=== PATIENT | male | born 1960 | race Caucasian/White ===

== ENCOUNTER 2016-08-19 11:02 | Observation (INO) | payer BC ==
--- NOTE | 2016-08-19 12:00 | RAD ---
Indication: Arrhythmia. Single frontal view of the chest performed at 1125 hours was reviewed. No prior study is available for comparison. No mediastinal shift is noted. Heart is of normal size and configuration. Lung tinoco appear clear. IMPRESSION: NO ACTIVE CARDIOPULMONARY DISEASE IS NOTED.
[2016-08-19 12:01] LABS: Hematocrit 50 % (42-52); Hemoglobin 16.7 g/dl (14.0-18.0); Mean Corpuscular HGB Conc 33 g/dl (31-36); Mean Corpuscular Hemoglobin 29 pg (27-31); Mean Corpuscular Volume 89 fL (80-94); Mean Platelet Volume 9 um3 (7.4-10.4); Red Blood Count 5.66 10^6/ul (4.0-5.4); Red Cell Distribution Width 14 % (10.5-15); White Blood Count 5.3 10^3/ul (3.5-10.8)
[2016-08-19 12:12] LABS: Albumin 3.7 g/dL (3.2-5.2); BUN/Creatinine Ratio 14.9 (8-20); EGFR African American 107.2 (>60); EGFR Non-African American 83.3 (>60); Globulin 2.6 g/dL (2-4); Magnesium 2.1 mg/dL (1.9-2.7); Potassium 4.4 mmol/L (3.5-5.0); Total Bilirubin 1.1 mg/dL (0.2-1.0); Total Protein 6.3 g/dL (6.4-8.9)
[2016-08-19 12:14] LABS: Troponin I 0.01 ng/mL (<0.04)
[2016-08-19 12:44] LABS: TSH (Thyroid Stimulating Horm) 4.22 mcIU/mL (0.34-5.60)
[2016-08-19] MEDS ORDERED: Diltiazem IV* 5 MG/ML 5 ML VIAL (for loading dose/IV Push) (25 MG) IV PUSH ONE (13:06)
[2016-08-19] MEDS ORDERED: Diltiazem DRIP* 100 MG/100 ML ADDV.BAG IVPB ONE (13:06)
[2016-08-19] MEDS ORDERED: NS 0.9% 1000 ML* 1,000 ML IV ONE (13:06)
[2016-08-19] MEDS ORDERED: Diltiazem TAB* 30 MG PO SCH (14:00)
[2016-08-19] MEDS: Enoxaparin(*) 100 MG/ML SYR SUBCUT SCH (15:26)
[2016-08-19] MEDS ORDERED: Diltiazem IV* 5 MG/ML 5 ML VIAL (for loading dose/IV Push) (25 MG) IV SLOW PU ONE (16:17)
--- NOTE | 2016-08-19 16:29 | HP ---
CC: Dr. Phong Milton HISTORY AND PHYSICAL: DATE OF ADMISSION: 08/19/16 PRIMARY CARE PHYSICIAN: Dr. Phong Milton. CHIEF COMPLAINT: Fatigue, AFib. HISTORY OF PRESENT ILLNESS: Mr. Chino is a 56-year-old male with past medical history of AFib, status post ablation in 2004 with recurrence, currently on flecainide; Hale's esophagus; and untreated BRETT who presents to the hospital after waking up this morning and subsequently feeling a sense of fatigue and "feeling funny." He denies any chest pain or palpitations. He felt well when he woke up in the morning, but about an hour or 2 later, he had this sensation which he states he usually gets when he notes he has atrial fibrillation. No shortness of breath, fever, chills, nausea, vomiting, or diarrhea. He denies any alcohol or coffee drinking. He did have some caffeinated sodas yesterday and last night; however, no more than usual. He came to the emergency room and was found to be in AFib with rapid ventricular rate with heart rates into the 130s and 140s. The patient states he did notice some back pain at the end of last week as well as some urinary frequency on Saturday, 2 days ago. The patient was taking Protonix for his Hale's esophagus ; however, he felt that this was maybe causing his symptoms, so he stopped this and since then they have resolved. He has no dysuria. PAST MEDICAL HISTORY: 1. AFib. 2. Hale's esophagus. 3. BRETT, untreated. PAST SURGICAL HISTORY: 1. Left ИВАН and revision. 2. Shoulder surgery. 3. Hernia repair. 4. Cardiac ablation, 2004. HOME MEDICATIONS: Flecainide 150 mg by mouth 2 times daily. ALLERGIES: The patient has no known drug allergies. FAMILY HISTORY: Significant for mother with CAD, valve replacement, and tobacco abuse. Father with CVA. SOCIAL HISTORY: Denies tobacco or illicit drug use. Has not had any alcohol for a few months. PHYSICAL EXAMINATION GENERAL: The patient is a middle-aged man lying in bed in no apparent distress. VITAL SIGNS: On admission, temperature 98.3, heart rate of 170, respiratory rate of 18, O2 saturation 96% on room air. Initial blood pressure 155/120, subsequently 123/66. HEENT: Moist mucous membranes. Anicteric sclerae. NECK: No cervical adenopathy. LUNGS: Clear to auscultation bilaterally. No wheezes, rales, or rhonchi. CARDIOVASCULAR: Irregularly irregular. Normal rate. No murmurs, gallops, or rubs. ABDOMEN: Soft, nontender, nondistended. Bowel sounds positive. EXTREMITIES: Some trace edema, bilateral lower extremities. SKIN: Warm, dry, and well perfused. NEUROLOGIC: The patient is alert and oriented x3. No focal neurological deficits. LABS AND DIAGNOSTICS: White blood cell count of 5.3, hematocrit of 50, platelets of 169. INR of 0.94. Sodium of 137, potassium 4.4, chloride of 108, carbon dioxide 23, BUN of 14, creatinine 0.94, glucose of 106, lactic acid of 1.0. Total bilirubin of 1.1. Remainder of LFTs within normal limits. Troponin of 0.01. TSH of 4.22. EKG personally reviewed shows atrial fibrillation, some Q waves in the inferior leads. Chest x-ray personally reviewed shows no acute disease. ASSESSMENT AND PLAN: Atrial fibrillation with rapid ventricular response in a 56- year-old male with a history of atrial fibrillation, status post ablation on flecainide; Hale's esophagus; and untreated obstructive sleep apnea. 1. Atrial fibrillation: The patient's rate responded very well to IV diltiazem. We will hold off on starting a drip and we will instead continue oral diltiazem at 30 mg q.6 hours for now. We will continue the patient's home flecainide. Spoke to Dr. Reynoso of Cardiology who feels the patient may be a good candidate for ARMAND with cardioversion. I will place him on Lovenox overnight tonight and we will make him n.p.o. after midnight for ARMAND with cardioversion in the morning. The patient states he has not converted to normal sinus rhythm without cardioversion in the past. He is not currently on anticoagulation as an outpatient. This can be discussed with Cardiology after cardioversion. I have encouraged the patient that he should try to treat his obstructive sleep apnea as this will probably help his atrial fibrillation. TSH wnl. No evidence of infection, UA pending. 2. History of Hale's esophagus: The patient is not currently on any medication after stopping his outpatient Protonix. Can follow up as an outpatient. 3. DVT prophylaxis: Lovenox subcu. 4. Code status: The patient is a full code. TIME SPENT: Total time spent on this admission, 45 minutes with over half the time spent [id number] with the patient counseling and coordinating care. [id number]/CPS #: [id number] SERAFIN
[2016-08-19] MEDS ORDERED: Diltiazem DRIP* 100 MG/100 ML ADDV.BAG IVPB SCH (18:00)
--- NOTE | 2016-08-19 18:01 | ED ---
Savannah Rodriguez Michael, scribed for Lokesh Frank MD on 08/19/16 at 1140 . Palpitations / Dysrhythmia - HPI Summary HPI Summary: 56 y/o male comes to the ED presenting with palpitations that started today at 0900. The pt reports was bedside and reports that the pt's heart beat was irregular and fast. Currently in the ED, the pt's heart rate is 125 bpm. He also c/o SOB with movement, but currently at the ED he has no SOB. The pt denies dizziness, CP, blurred vision, abd pain, XIONG, and n/v. The PMHx is significant for A-fib and GERD. He also took his medication this morning. The FHx is significant for MD and CVA. - History of Current Complaint Chief Complaint: EDDysrhythmPalp Time Seen by Provider: 08/19/16 11:15 Onset/Duration: Sudden Onset, Still Present Severity Initially: Moderate Severity Currently: Moderate Character: Fast, Irregular Associated Signs & Symptoms: Negative - CP. dizziness. n/v. XIONG. blurred vision. abd pain., Shortness of Breath - Allergy/Home Medications Allergies/Adverse Reactions: Allergies Allergy/AdvReac Type Severity Reaction Status Date / Time No Known Allergies Allergy Verified 08/19/16 11:04 PMH/Surg Hx/FS Hx/Imm Hx Cardiovascular History: Reports: Hx Atrial Fibrillation Denies: Hx Pacemaker/ICD GI History: Reports: Hx Gastroesophageal Reflux Disease Sensory History: Denies: Hx Hearing Aid Psychiatric History: Denies: Hx Panic Disorder - Surgical History Surgery Procedure, Year, and Place: LT HIP REPLACEMENT 09/2012 AT [facility] , LT ROTATOR CUFF SURGERY 01/2009 [place], HEART ABLATION [facility],HERNIA A CHILD,REMOVAL OF LUMP FROM LEFT SIDE OF NECK. lft hip revision 03/10/15. Infectious Disease History: No Infectious Disease History: Denies: Traveled Outside the [place] in Last 30 Days - Family History Known Family History: Positive: Other - CVA. MD. - Social History Occupation: Employed Full-time Lives: With Family Alcohol Use: Rare Substance Use Type: Reports: None Smoking Status (MU): Never Smoked Tobacco Review of Systems Positive: Palpitations. Negative: Chest Pain Positive: Shortness Of Breath Negative: Abdominal Pain, Vomiting, Nausea Neurological: Negative - dizziness Negative: Headache All Other Systems Reviewed And Are Negative: Yes Physical Exam - Summary Physical Exam Summary: VITAL SIGNS: Reviewed. GENERAL: Patient is a well developed and nourished male who is lying comfortable in the stretcher. Patient is not in any acute respiratory distress. HEAD AND FACE: No signs of trauma. No ecchymosis, hematomas or skull depressions. No sinus tenderness. EYES: PERRLA, EOMI x 2, No injected conjunctiva, no nystagmus. EARS: Hearing grossly intact. Ear canals and tympanic membranes are within normal limits. MOUTH: Oropharynx within normal limits. NECK: Supple, trachea is midline, no adenopathy, no JVD, no carotid bruit, no c- spine tenderness, neck with full ROM. CHEST: Symmetric, no tenderness at palpation LUNGS: Clear to auscultation bilaterally. No wheezing or crackles. CVS: Tachycardia with a Regular rate and rhythm, S1 and S2 present, no murmurs or gallops appreciated. ABDOMEN: Soft, non-tender. No signs of distention. No rebound no guarding, and no masses palpated. Bowel sounds are normal. EXTREMITIES: FROM in all major joints, no edema, no cyanosis or clubbing. NEURO: Alert and oriented x 3. No acute neurological deficits. Speech is normal and follows commands. SKIN: Dry and warm Triage Information Reviewed: Yes Vital Signs On Initial Exam: Initial Vitals Temp Pulse Resp BP Pulse Ox 98.3 F 117 18 155/120 96 08/19/16 11:04 08/19/16 11:04 08/19/16 11:04 08/19/16 11:04 08/19/16 11:04 Vital Signs Reviewed: Yes Diagnostics - Vital Signs Vital Signs Temp Pulse Resp BP Pulse Ox 08/19/16 11:04 98.3 F 117 18 155/120 96 - Laboratory Lab Results: Lab Results 08/19/16 08/19/16 08/19/16 Range/Units 11:40 11:40 11:40 WBC 5.3 (3.5-10.8) 10^3/ul RBC 5.66 H (4.0-5.4) 10^6/ul Hgb 16.7 (14.0-18.0) g/dl Hct 50 (42-52) % MCV 89 (80-94) fL MCH 29 (27-31) pg MCHC 33 (31-36) g/dl RDW 14 (10.5-15) % Plt Count 169 (150-450) 10^3/ul MPV 9 (7.4-10.4) um3 Neut % (Auto) 69.1 (38-83) % Lymph % (Auto) 18.0 L (25-47) % [place] % (Auto) 10.0 H (1-9) % Eos % (Auto) 2.1 (0-6) % Baso % (Auto) 0.8 (0-2) % Absolute Neuts (auto) 3.7 (1.5-7.7) 10^3/ul Absolute Lymphs (auto) 1.0 (1.0-4.8) 10^3/ul Absolute Monos (auto) 0.5 (0-0.8) 10^3/ul Absolute Eos (auto) 0.1 (0-0.6) 10^3/ul Absolute Basos (auto) 0 (0-0.2) 10^3/ul Absolute Nucleated RBC 0.01 10^3/ul Nucleated RBC % 0.2 INR (Anticoag Therapy) 0.94 (0.89-1.11) APTT 29.2 (26.0-36.3) seconds Sodium 137 (133-145) mmol/L Potassium 4.4 (3.5-5.0) mmol/L Chloride 108 (101-111) mmol/L Carbon Dioxide 23 (22-32) mmol/L Anion Gap 6 (2-11) mmol/L BUN 14 (6-24) mg/dL Creatinine 0.94 (0.67-1.17) mg/dL Est GFR ( Amer) 107.2 (>60) Est GFR (Non-Af Amer) 83.3 (>60) BUN/Creatinine Ratio 14.9 (8-20) Glucose 106 H (70-100) mg/dL Lactic Acid (0.5-2.0) mmol/L Calcium 9.0 (8.6-10.3) mg/dL Magnesium 2.1 (1.9-2.7) mg/dL Total Bilirubin 1.10 H (0.2-1.0) mg/dL AST 15 (13-39) U/L ALT 16 (7-52) U/L Alkaline Phosphatase 51 (34-104) U/L Total Creatine Kinase 92 (10-223) U/L CK-MB (CK-2) 5.2 (0.6-6.3) ng/mL Troponin I 0.01 (<0.04) ng/mL B-Natriuretic Peptide ( - 100) pg/mL Total Protein 6.3 L (6.4-8.9) g/dL Albumin 3.7 (3.2-5.2) g/dL Globulin 2.6 (2-4) g/dL Albumin/Globulin Ratio 1.4 (1-3) TSH Pending 08/19/16 08/19/16 Range/Units 11:40 11:40 WBC (3.5-10.8) 10^3/ul RBC (4.0-5.4) 10^6/ul Hgb (14.0-18.0) g/dl Hct (42-52) % MCV (80-94) fL MCH (27-31) pg MCHC (31-36) g/dl RDW (10.5-15) % Plt Count (150-450) 10^3/ul MPV (7.4-10.4) um3 Neut % (Auto) (38-83) % Lymph % (Auto) (25-47) % [place] % (Auto) (1-9) % Eos % (Auto) (0-6) % Baso % (Auto) (0-2) % Absolute Neuts (auto) (1.5-7.7) 10^3/ul Absolute Lymphs (auto) (1.0-4.8) 10^3/ul Absolute Monos (auto) (0-0.8) 10^3/ul Absolute Eos (auto) (0-0.6) 10^3/ul Absolute Basos (auto) (0-0.2) 10^3/ul Absolute Nucleated RBC 10^3/ul Nucleated RBC % INR (Anticoag Therapy) (0.89-1.11) APTT (26.0-36.3) seconds Sodium (133-145) mmol/L Potassium (3.5-5.0) mmol/L Chloride (101-111) mmol/L Carbon Dioxide (22-32) mmol/L Anion Gap (2-11) mmol/L BUN (6-24) mg/dL Creatinine (0.67-1.17) mg/dL Est GFR ( Amer) (>60) Est GFR (Non-Af Amer) (>60) BUN/Creatinine Ratio (8-20) Glucose (70-100) mg/dL Lactic Acid 1.0 (0.5-2.0) mmol/L Calcium (8.6-10.3) mg/dL Magnesium (1.9-2.7) mg/dL Total Bilirubin (0.2-1.0) mg/dL AST (13-39) U/L ALT (7-52) U/L Alkaline Phosphatase (34-104) U/L Total Creatine Kinase (10-223) U/L CK-MB (CK-2) (0.6-6.3) ng/mL Troponin I (<0.04) ng/mL B-Natriuretic Peptide 82 ( - 100) pg/mL Total Protein (6.4-8.9) g/dL Albumin (3.2-5.2) g/dL Globulin (2-4) g/dL Albumin/Globulin Ratio (1-3) TSH Result Diagrams: 08/19/16 11:40 08/19/16 11:40 Lab Statement: Any lab studies that have been ordered have been reviewed, and results considered in the medical decision making process. - Radiology CXR Xray Interpretation: No Acute Changes Radiology Interpretation Completed By: Radiologist - EKG EK EKG Rhythm: Sinus Tachycardia - 125 bpm EKG Interpretation: no st elevation EK EKG Rhythm: Atrial Fibrillation - 120 bpm EKG Interpretation: no st elevation Course/Dx - Course Course Of Treatment: 56 y/o male comes to the ED presenting with palpitations that started today at 0900. The pt reports was bedside and reports that the pt's heart beat was irregular and fast. Currently in the ED, the pt's heart rate is 125 bpm. He also c/o SOB with movement, but currently at the ED he has no SOB. The pt denies dizziness, CP, blurred vision, abd pain, XIONG, and n/v. The PMHx is significant for A-fib and GERD. He also took his medication this morning. The FHx is significant for MD and CVA. The blood work is within normal limits with a glucose of 106. The CXR shows no active cardiopulmonary disease. The EKG showed Atrial fibrillation with 125 bpm. The patient was given Cardizem IV. Dr. Lindsay accepts the patient as an admission. Patient is hemodynamically stable and A+OX3 - Diagnoses Differential Diagnosis/HQI/PQRI: Positive: Paroxymal SVT, Other - A fib, A flutter Provider Diagnoses: Atrial fibrillation with RVR Discharge - Discharge Plan Condition: Stable Disposition: ADMITTED TO [facility] The documentation as recorded by the Savannah lazo Michael accurately reflects the service I personally performed and the decisions made by Zac gomez Walter, MD.
[2016-08-19] MEDS: Flecainide TAB* 100 MG PO SCH (20:04)
[2016-08-19] MEDS: Diltiazem TAB* 30 MG PO SCH (23:51)
[2016-08-20 03:07] LABS: Urine Bilirubin Negative (Negative); Urine Glucose Negative (Negative); Urine Nitrite Negative (Negative)
[2016-08-20] MEDS: Enoxaparin(*) 100 MG/ML SYR SUBCUT SCH (04:05)
[2016-08-20] MEDS ORDERED: Enoxaparin(*) 60 MG/0.6 ML SYR SUBCUT SCH (05:00)
[2016-08-20] MEDS: Diltiazem TAB* 30 MG PO SCH ×2 (05:30→12:01)
[2016-08-20] MEDS ORDERED: Pneumococcal Vac Polyvalent* 0.5 ML VIAL IM ONE (09:00)
[2016-08-20] MEDS: Flecainide TAB* 100 MG PO SCH (09:33)
--- NOTE | 2016-08-20 09:47 | PN ---
Subjective Date of Service: 08/20/16 Interval History: Patient seen and examined at bedside at 1300. Mr. Chino is lying in bed, denies CP, SOB, abd pain, n/v. He has converted into SR spontaneously, though he did not realize it. He reports that he usually knows when he goes into afib. He denies any complaints overnight or this AM, though he is eager to go home. He reports not tolerating his CPAP in the past. We discussed the CV risks of untreated BRETT, and pt was encouraged to f/u with PCP to pursue treatment options. We also discussed his stroke risk; pt offered to start Eliquis today. He would like to wait and discuss with primary senior ui ux designer, Dr. Juarez. Telemetry: SR 60s-70s Family History: Unchanged from Admission Social History: Unchanged from Admission Past Medical History: Unchanged from Admission Objective Active Medications: Diltiazem HCl (Cardizem Tab*) 30 mg PO Q6H [facility] Last Admin: 08/20/16 05:30 Dose: 30 mg Enoxaparin Sodium (Lovenox(*)) 120 mg SUBCUT 0500,1700 [facility] Last Admin: 08/20/16 05:29 Dose: 120 mg Flecainide Acetate (Tambocor Tab*) 150 mg PO BID [facility] Last Admin: 08/20/16 09:33 Dose: 150 mg Vital Signs 08/19/16 08/19/16 08/19/16 13:30 14:00 14:30 Temperature Pulse Rate 81 95 73 Respiratory 19 22 20 Rate Blood Pressure 99/76 103/73 109/61 (mmHg) O2 Sat by Pulse 95 95 97 Oximetry 08/19/16 08/19/16 08/19/16 15:00 15:51 16:37 Temperature 98.2 F 98.1 F Pulse Rate 47 99 126 Respiratory 20 16 Rate Blood Pressure 120/77 111/74 105/56 (mmHg) O2 Sat by Pulse 97 97 Oximetry 08/19/16 08/19/16 08/19/16 17:49 18:30 18:45 Temperature 97.1 F Pulse Rate 74 Respiratory 16 18 16 Rate Blood Pressure 122/68 99/72 94/70 (mmHg) O2 Sat by Pulse 98 Oximetry 08/19/16 08/19/16 08/19/16 18:50 19:00 19:15 Temperature Pulse Rate Respiratory 17 17 14 Rate Blood Pressure 99/75 104/75 98/71 (mmHg) O2 Sat by Pulse Oximetry 08/19/16 08/19/16 08/19/16 19:30 19:45 20:00 Temperature Pulse Rate Respiratory 17 17 17 Rate Blood Pressure 108/71 98/60 112/70 (mmHg) O2 Sat by Pulse Oximetry 08/19/16 08/19/16 08/19/16 20:30 21:00 21:30 Temperature Pulse Rate Respiratory 16 15 16 Rate Blood Pressure 114/67 112/71 122/70 (mmHg) O2 Sat by Pulse Oximetry 08/19/16 08/19/16 08/19/16 22:00 22:30 23:00 Temperature Pulse Rate Respiratory 16 16 17 Rate Blood Pressure 103/87 111/67 (mmHg) O2 Sat by Pulse Oximetry 08/19/16 08/19/16 08/19/16 23:27 23:29 23:30 Temperature 97.8 F Pulse Rate Respiratory 16 20 19 Rate Blood Pressure (mmHg) O2 Sat by Pulse Oximetry 08/20/16 08/20/16 08/20/16 00:00 00:30 03:35 Temperature 97.2 F Pulse Rate 65 Respiratory 17 13 16 Rate Blood Pressure 105/72 119/80 (mmHg) O2 Sat by Pulse 96 Oximetry Oxygen Devices in Use Now: None Appearance: Male patient, lying in bed, in NAD Eyes: PERRLA Ears/Nose/Mouth/Throat: Clear Oropharnyx, Mucous Membranes Moist Neck: NL Appearance and Movements; NL JVP Respiratory: Symmetrical Chest Expansion and Respiratory Effort, Clear to Auscultation Cardiovascular: NL Sounds; No Murmurs; No JVD, RRR Abdominal: NL Sounds; No Tenderness; No Distention Extremities: No Edema Skin: No Rash or Ulcers Neurological: Alert and Oriented x 3 Lines/Tubes/Other Access: Clean, Dry and Intact Peripheral IV Nutrition: Taking PO's Result Diagrams: 08/19/16 11:40 08/19/16 11:40 Additional Lab and Data: Lab Results 08/19/16 08/19/16 08/19/16 Range/Units 11:40 11:40 11:40 WBC 5.3 (3.5-10.8) 10^3/ul RBC 5.66 H (4.0-5.4) 10^6/ul Hgb 16.7 (14.0-18.0) g/dl Hct 50 (42-52) % MCV 89 (80-94) fL MCH 29 (27-31) pg MCHC 33 (31-36) g/dl RDW 14 (10.5-15) % Plt Count 169 (150-450) 10^3/ul MPV 9 (7.4-10.4) um3 Neut % (Auto) 69.1 (38-83) % Lymph % (Auto) 18.0 L (25-47) % Barnes % (Auto) 10.0 H (1-9) % Eos % (Auto) 2.1 (0-6) % Baso % (Auto) 0.8 (0-2) % Absolute Neuts (auto) 3.7 (1.5-7.7) 10^3/ul Absolute Lymphs (auto) 1.0 (1.0-4.8) 10^3/ul Absolute Monos (auto) 0.5 (0-0.8) 10^3/ul Absolute Eos (auto) 0.1 (0-0.6) 10^3/ul Absolute Basos (auto) 0 (0-0.2) 10^3/ul Absolute Nucleated RBC 0.01 10^3/ul Nucleated RBC % 0.2 INR (Anticoag Therapy) 0.94 (0.89-1.11) APTT 29.2 (26.0-36.3) seconds Sodium 137 (133-145) mmol/L Potassium 4.4 (3.5-5.0) mmol/L Chloride 108 (101-111) mmol/L Carbon Dioxide 23 (22-32) mmol/L Anion Gap 6 (2-11) mmol/L BUN 14 (6-24) mg/dL Creatinine 0.94 (0.67-1.17) mg/dL Est GFR ( Amer) 107.2 (>60) Est GFR (Non-Af Amer) 83.3 (>60) BUN/Creatinine Ratio 14.9 (8-20) Glucose 106 H (70-100) mg/dL Lactic Acid (0.5-2.0) mmol/L Calcium 9.0 (8.6-10.3) mg/dL Magnesium 2.1 (1.9-2.7) mg/dL Total Bilirubin 1.10 H (0.2-1.0) mg/dL AST 15 (13-39) U/L ALT 16 (7-52) U/L Alkaline Phosphatase 51 (34-104) U/L Total Creatine Kinase 92 (10-223) U/L CK-MB (CK-2) 5.2 (0.6-6.3) ng/mL Troponin I 0.01 (<0.04) ng/mL B-Natriuretic Peptide ( - 100) pg/mL Total Protein 6.3 L (6.4-8.9) g/dL Albumin 3.7 (3.2-5.2) g/dL Globulin 2.6 (2-4) g/dL Albumin/Globulin Ratio 1.4 (1-3) TSH Pending 08/19/16 08/19/16 Range/Units 11:40 11:40 WBC (3.5-10.8) 10^3/ul RBC (4.0-5.4) 10^6/ul Hgb (14.0-18.0) g/dl Hct (42-52) % MCV (80-94) fL MCH (27-31) pg MCHC (31-36) g/dl RDW (10.5-15) % Plt Count (150-450) 10^3/ul MPV (7.4-10.4) um3 Neut % (Auto) (38-83) % Lymph % (Auto) (25-47) % Barnes % (Auto) (1-9) % Eos % (Auto) (0-6) % Baso % (Auto) (0-2) % Absolute Neuts (auto) (1.5-7.7) 10^3/ul Absolute Lymphs (auto) (1.0-4.8) 10^3/ul Absolute Monos (auto) (0-0.8) 10^3/ul Absolute Eos (auto) (0-0.6) 10^3/ul Absolute Basos (auto) (0-0.2) 10^3/ul Absolute Nucleated RBC 10^3/ul Nucleated RBC % INR (Anticoag Therapy) (0.89-1.11) APTT (26.0-36.3) seconds Sodium (133-145) mmol/L Potassium (3.5-5.0) mmol/L Chloride (101-111) mmol/L Carbon Dioxide (22-32) mmol/L Anion Gap (2-11) mmol/L BUN (6-24) mg/dL Creatinine (0.67-1.17) mg/dL Est GFR ( Amer) (>60) Est GFR (Non-Af Amer) (>60) BUN/Creatinine Ratio (8-20) Glucose (70-100) mg/dL Lactic Acid 1.0 (0.5-2.0) mmol/L Calcium (8.6-10.3) mg/dL Magnesium (1.9-2.7) mg/dL Total Bilirubin (0.2-1.0) mg/dL AST (13-39) U/L ALT (7-52) U/L Alkaline Phosphatase (34-104) U/L Total Creatine Kinase (10-223) U/L CK-MB (CK-2) (0.6-6.3) ng/mL Troponin I (<0.04) ng/mL B-Natriuretic Peptide 82 ( - 100) pg/mL Total Protein (6.4-8.9) g/dL Albumin (3.2-5.2) g/dL Globulin (2-4) g/dL Albumin/Globulin Ratio (1-3) TSH Assess/Plan/Problems-Billing Assessment: Mr. Chino is a 56 yo male with a PMH of atrial fibrillation, Au's esophagus, and untreated BRETT who presented to the ED with fatigue secondary to atrial fibrillation on 08/19/16. - Patient Problems (1) Atrial fibrillation Code(s): I48.91 - UNSPECIFIED ATRIAL FIBRILLATION Comment: Pt spontaneously converted prior to cardioversion Previous history of ablation, usually controlled with flecainide Not on anticoagulation, hx of XIONG with Xarelto Pt declined to start Eliquis today; would like to review options with primary senior ui ux designer in [place]. Continue diltiazem. (2) Barretts esophagus Code(s): K22.70 - AU'S ESOPHAGUS WITHOUT DYSPLASIA Comment: Not currently on medication Continue outpatient followup. (3) Obstructive sleep apnea Code(s): G47.33 - OBSTRUCTIVE SLEEP APNEA (ADULT) (PEDIATRIC) Comment: Education provided to patient regarding treatment of BRETT in order to reduce CV risk. Outpatient f/u recommended, which can be done through PCP. (4) DVT prophylaxis Code(s): TUG8877 - Comment: SQ enoxaparin Status and Disposition: OBV admit. D/c to home with PCP and cardiology f/u. [employer] office called twice and 2 messages left in order to discuss patient with senior ui ux designer and to obtain appointment. Pt will call and obtain appointment if cardiology office does not call him back.
[2016-08-20 11:52] VITALS: BP 123/79
--- NOTE | 2016-08-21 12:31 | DS ---
DISCHARGE SUMMARY: DATE OF ADMISSION: 08/19/16 DATE OF DISCHARGE: 08/20/16 PROVIDER: Karo Winslow NP ATTENDING PHYSICIAN: Alsesandra Varner MD* (dictated by Karo Winslow NP) PRIMARY CARE PHYSICIAN: Dr. Phong Milton. PRIMARY LOOM FIXER SUPERVISOR: Dr. Juarez. PRIMARY DISCHARGE DIAGNOSIS: Atrial fibrillation. SECONDARY DISCHARGE DIAGNOSES: 1. Hale's esophagus. 2. Obstructive sleep apnea, untreated. MEDICATIONS AT DISCHARGE: 1. Flecainide 150 mg b.i.d. 2. Diltiazem 120 mg daily. 3. Aspirin 81 mg. HOSPITAL COURSE: For full details, please refer to the H and P provided by Dr. Lindsay on 08/19/16. In summary, Mr. Chino is a 56-year-old male patient with a past medical history of atrial fibrillation, status post ablation in 2004 with recurrence. He was maintained on flecainide in the outpatient setting and presented to ER with concern for fatigue and atrial fibrillation. He states that he usually knows when he goes into AFib and reports "feeling funny." He denied any chest pain or palpitations. In the ER, he was found to be in AFib with RVR with heart rates in the 130s to 140s. The patient responded well to IV diltiazem and we did continue him on oral diltiazem at 30 mg every 6 hours. Cardiology was consulted and it was expressed that the patient may be a good candidate for ARMAND with cardioversion. The patient was made n.p.o. with a plan for cardioversion the following morning; however, overnight and this morning the patient spontaneously converted back to normal sinus rhythm on his own and his ARMAND was canceled by Cardiology. In regard to the patient's anticoagulation, he states that he was previously on Xarelto but had headaches from the medication. 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 We did review the risks of having atrial fibrillation and the risk of going back into AFib once discharged and his increased stroke risk. The patient verbalized understanding of this. I did explain that there are other newer oral anticoagulation medications that are available besides Xarelto. The patient did receive this information well, and we discussed the possibility of starting Eliquis, which is another medication that is well tolerated. The patient stated that he is aware of the risks and understands that it may be beneficial to be on an anticoagulant; however, he would like to discuss this with Dr. Juarez, who is his primary rose grading supervisor. He prefers to stay on his aspirin at this time. In regard to the patient's obstructive sleep apnea, I did discuss provide teaching regarding the obstructive sleep apnea and cardiovascular risks that are associated with untreated sleep apnea. The patient received this information and verbalized understanding. I did encourage him to follow up with his PCP to address this and perhaps obtain another sleep study if required and to consider going back on to a CPAP machine as there are many different options that are available for him. His also felt that he would benefit from a CPAP machine as well. The patient is more reluctant with this information but states he will take it under advisement. At the time of discharge, the patient denied chest pain, shortness of breath or any other concerning symptoms. He has normal sinus rhythm and had no acute complaints. CONCERNS AT DISCHARGE: Mr. Chino was discharged to home on 08/20/16 with a plan to follow up with Dr. Milton. I did call Dr. Juarez's office and left 2 messages because I was unable to reach anyone. I did advise the patient and his spouse to call the office and make an appointment to be seen in the upcoming 1 to 2 weeks. They will arrange this. DIET: Heart-healthy diet. ACTIVITY: As tolerated. CONDITION: Stable. DISPOSITION: To home. TIME SPENT: Time spent on this discharge was approximately 45 minutes. This is only a brief summary of the patient's hospital course of stay. For full details, please refer to the full medical record. If you have any further questions or need further assistance, please feel free to contact me at [phone]. KARO WINSLOW NP CC: Dr. Phong Milton* [id number]/[facility] #: [id number] SERAFIN
== END 2016-08-20 15:37 | disposition home or self-care (01) ==
LOC: ED 11:02 → MEDTELE 13:26
PROVIDERS: ADMIT Hospitalist; ATTEND Hospitalist
DX: I48.91 Unspecified atrial fibrillation (principal); K22.70 Barrett's esophagus without dysplasia; G47.33 Obstructive sleep apnea (adult) (pediatric); R06.02 Shortness of breath; R53.83 Other fatigue; Z23 Encounter for immunization; Z79.899 Other long term (current) drug therapy
CPT/HCPCS: 36415; 71010; 80053; 81003; 82550; 82553; 83605; 83735; 83880; 84443; 84484; 85025; 85610; 85730; 90471; 90732; 93005; 96361; 96365; 96366; 96372; 96375; 96376; 99284; A9270-GY; G0009; G0378; J1650

== ENCOUNTER 2019-05-27 18:23 | Emergency (ER) | payer BC ==
[2019-05-27 18:37] VITALS: BP 133/77
--- NOTE | 2019-05-27 19:11 | UC ---
Dizzy HPI HPI Summary: 59 yo with hx of atrial fibrillation medically controlled with antiarrhythmic, and lymphoma, with 4 day history of episodes of vertigo. first occurred on when he turned his head quickly and he had the sensation of tipping over, and again when he rolled over in bed on 05/24. Symptoms resolved. Had no concerns 05/25 and 05/26, but this morning when he leaned over to help his son, he had the sense of pitching forward. This most recent episode lasted several minutes, and he had emesis. He has stayed quiet today, but notes no headache, fever, balance loss, diplopia, vision loss. - History Of Current Complaint Chief Complaint: UCDizziness Stated Complaint: DIZZINESS/SWEATS Time Seen by Provider: 05/27/19 19:08 Hx Obtained From: Patient Onset/Duration: Sudden Onset, Lasting Days - 4 Timing: Seconds Severity Initially: Mild Severity Currently: Mild Pain Intensity: 0 Character: Room Spinning Aggravating Factor(s): Position Change Alleviating Factor(s): Rest Associated Signs And Symptoms: Positive: Vomiting - x 1 only - Risk Factors Cardiac Risk Factors: Negative CVA Risk Factor: Atrial Fibrillation - Allergies/Home Medications Allergies/Adverse Reactions: Allergies Allergy/AdvReac Type Severity Reaction Status Date / Time No Known Allergies Allergy Verified 05/27/19 18:37 PMH/Surg Hx/FS Hx/Imm Hx Previously Healthy: Yes Cardiovascular History: Atrial Fibrillation - Surgical History Surgical History: Yes Surgery Procedure, Year, and Place: LT HIP REPLACEMENT 09/2012 AT [facility] , LT ROTATOR CUFF SURGERY 01/2009 [place], HEART ABLATION ANITA WINSLOW,HERNIA A CHILD,REMOVAL OF LUMP FROM LEFT SIDE OF NECK. lft hip revision 03/10/15. - Family History Known Family History: Positive: Other - CVA. ID. - Social History Occupation: Retired Lives: With Family Alcohol Use: Occasionally Substance Use Type: None Smoking Status (MU): Never Smoked Tobacco Review of Systems All Other Systems Reviewed And Are Negative: Yes Constitutional: Positive: Negative Skin: Positive: Negative Eyes: Negative: Blurred Vision, Diplopia, Photophobia ENT: Negative: Ear Ache Respiratory: Positive: Negative Cardiovascular: Positive: Negative - He has been in sinus rhythm for 2 years, without use of anti-coagulants at any time. Gastrointestinal: Positive: Vomiting, Nausea Genitourinary: Positive: Negative Motor: Positive: Negative Neurovascular: Positive: Negative Musculoskeletal: Positive: Negative Neurological: Negative: Headache, Weakness, Numbness Psychological: Positive: Negative Is Patient Immunocompromised?: No Physical Exam Triage Information Reviewed: Yes Appearance: Well-Appearing, No Pain Distress Vital Signs: Initial Vital Signs Temp 97.9 F 05/27/19 18:32 Pulse 79 05/27/19 18:32 Resp 18 05/27/19 18:32 BP 133/77 05/27/19 18:32 Pulse Ox 97 05/27/19 18:32 Eye Exam: Other - JESUS, no photophobia, normal fundi. Eyes: Positive: Conjunctiva Clear ENT: Positive: Pharynx normal, TMs normal Neck: Positive: Supple, Nontender Respiratory: Positive: Lungs clear, Normal breath sounds Cardiovascular: Positive: RRR, No Murmur Musculoskeletal Exam: Normal Neurological Exam: Other - CNII-XII normal. No nystagmus Gait normal, negative romberg's. No past pointing with finter to nose. No pronator drift. Neurological: Positive: Alert, Muscle Tone Normal Psychological Exam: Normal Skin Exam: Normal Dizzy Course/Dx - Course Course Of Treatment: 59 yo with past hx of a fib and current lymphoma (surveillance at this time), with recent vertigo consistent with BPPV. No clinical findings to suggest stroke. Will use meclizine and monitor, follow up with PMD if symptoms persist. - Differential Dx/Diagnosis Differential Diagnosis/HQI/PQRI: Benign Paroxysmal Positional Vertigo, CVA, Labyrinthitis, Transient Ischemic Attack Provider Diagnosis: Benign positional vertigo Discharge ED - Sign-Out/Discharge Documenting (check all that apply): Patient Departure All imaging exams completed and their final reports reviewed: No Studies - Discharge Plan Condition: Stable Disposition: HOME Prescriptions: Meclizine TAB* [Antivert 12.5 TAB*] 25 mg PO TID PRN #30 tab PRN Reason: Vertigo Patient Education Materials: Benign Paroxysmal Positional Vertigo (ED) Referrals: Susie Weston PA [Primary Care Provider] - Additional Instructions: As discussed, you do not have findings concerning for stroke. Use meclizine at bedtime for the next several days, with additional doses if you are having continued nausea and vertigo. follow up with Dr. Enrico next week if symptoms persist. If you develop headache of ouble vision, or difficulty with speech or balance, please proceed directly to the emergency room for evaluation. - Billing Disposition and Condition Condition: STABLE Disposition: Home
== END 2019-05-27 19:45 | disposition home or self-care (01) ==
LOC: UCCORT 18:23
DX: H81.10 Benign paroxysmal vertigo, unspecified ear (principal); I48.91 Unspecified atrial fibrillation; C85.90 Non-Hodgkin lymphoma, unspecified, unspecified site; Z96.642 Presence of left artificial hip joint
CPT/HCPCS: 99212; G0463

== ENCOUNTER 2020-01-31 09:41 | Inpatient (IN) ==
[2020-01-31 11:15] LABS: Hematocrit 40 % (42-52); Hemoglobin 13.6 g/dL (14.0-18.0); Mean Corpuscular HGB Conc 34 g/dL (31-36); Mean Corpuscular Hemoglobin 31 pg (27-31); Mean Corpuscular Volume 90 fL (80-94); Platelet Count 150 10^3/uL (150-450); Red Blood Count 4.41 10^6 /uL (4.18-5.48); Red Cell Distribution Width 17 % (10-15); White Blood Count 5.1 10^3/uL (3.5-10.8)
[2020-01-31 11:30] LABS: Albumin 3.4 g/dL (3.2-5.2); Albumin/Globulin Ratio 1.7 (1-3); BUN/Creatinine Ratio 18.1 (8-20); Calcium 8.7 mg/dL (8.6-10.3); EGFR African American 115.1 (>60); EGFR Non-African American 95.2 (>60); Potassium 4.2 mmol/L (3.5-5.0); Total Bilirubin 0.9 mg/dL (0.2-1.0); Total Protein 5.4 g/dL (6.4-8.9)
[2020-01-31] MEDS ORDERED: Diltiazem IV push/loading dose 5 MG/ML 5 ML vial (25 mg) IV SLOW PU ONE ×2 (11:33→12:42)
[2020-01-31] MEDS ORDERED: NS 0.9% 500 ml BAG 500 ML IV ONE (11:33)
[2020-01-31 13:20] LABS: ABS Lymphocytes 0.7 10^3/ul (1.0-4.8); ABS Monocytes 0.2 10^3/ul (0-0.8); ABS Neutrophils 4.3 10^3/ul (1.5-7.7); Eosinophil % 0.4 %; Lymphocyte % 12.9 %
[2020-01-31] MEDS ORDERED: Enoxaparin 100 MG/ML SYR SUBCUT SCH (15:00)
[2020-01-31] MEDS ORDERED: Enoxaparin 100 MG/ML SYR ONE (16:25)
[2020-01-31] MEDS ORDERED: Heparin 5000 UNITS/ML 1 mL VIAL SUBCUT SCH (21:00)
[2020-01-31] MEDS: Metoprolol Tartrate 5 mg VIAL 5 ml VIAL (1 mg/ml) IV PRN (21:05)
[2020-02-01] MEDS: Metoprolol Tartrate 5 mg VIAL 5 ml VIAL (1 mg/ml) IV PRN ×3 (01:23→18:35)
[2020-02-01] MEDS: Enoxaparin 100 MG/ML SYR SUBCUT SCH ×2 (05:18→18:09)
[2020-02-01 05:32] LABS: Hematocrit 37 % (42-52); Hemoglobin 12.5 g/dL (14.0-18.0); Mean Corpuscular HGB Conc 34 g/dL (31-36); Mean Corpuscular Hemoglobin 31 pg (27-31); Mean Corpuscular Volume 90 fL (80-94); Mean Platelet Volume 7.7 fL (7.4-10.4); Platelet Count 127 10^3/uL (150-450); Red Cell Distribution Width 17 % (10-15); White Blood Count 3.1 10^3/uL (3.5-10.8)
[2020-02-01 05:40] LABS: Activated Partial Thrombo Time 28.4 seconds (26.0-38.0); INR 1.16 (0.82-1.09)
[2020-02-01 05:49] LABS: Albumin 3.1 g/dL (3.2-5.2); Albumin/Globulin Ratio 1.6 (1-3); BUN/Creatinine Ratio 17.3 (8-20); Calcium 8.2 mg/dL (8.6-10.3); EGFR African American 129.4 (>60); Globulin 1.9 g/dL (2-4); Potassium 4.3 mmol/L (3.5-5.0); Total Bilirubin 0.9 mg/dL (0.2-1.0)
[2020-02-01 06:04] LABS: TSH Ultra Thyroid Stim Horm 4.3 mcIU/mL (0.34-5.60)
[2020-02-01 08:19] LABS: ABS Lymphocytes 0.5 10^3/ul (1.0-4.8); ABS Monocytes 0.2 10^3/ul (0-0.8); ABS Neutrophils 2.3 10^3/ul (1.5-7.7); Eosinophil % 1.4 %; Lymphocyte % 14.9 %
[2020-02-01] MEDS ORDERED: Furosemide 20 mg/2 ml IV VIAL IV ONE (18:49)
[2020-02-02] MEDS: Enoxaparin 100 MG/ML SYR SUBCUT SCH ×2 (06:00→18:48)
[2020-02-02 09:36] LABS: Hematocrit 38 % (42-52); Hemoglobin 12.8 g/dL (14.0-18.0); Mean Corpuscular HGB Conc 34 g/dL (31-36); Mean Corpuscular Hemoglobin 31 pg (27-31); Mean Corpuscular Volume 90 fL (80-94); Mean Platelet Volume 8.2 fL (7.4-10.4); Platelet Count 128 10^3/uL (150-450); Red Blood Count 4.18 10^6 /uL (4.18-5.48); Red Cell Distribution Width 16 % (10-15); White Blood Count 2.3 10^3/uL (3.5-10.8)
[2020-02-02 10:12] LABS: BUN/Creatinine Ratio 21.7 (8-20); Calcium 8.6 mg/dL (8.6-10.3); EGFR African American 102.2 (>60); EGFR Non-African American 84.5 (>60); Potassium 4.1 mmol/L (3.5-5.0)
[2020-02-02 10:51] LABS: ABS Lymphocytes 0.6 10^3/ul (1.0-4.8); ABS Monocytes 0.3 10^3/ul (0-0.8); ABS Neutrophils 1.4 10^3/ul (1.5-7.7); Eosinophil % 1.7 %; Lymphocyte % 25.1 %; Nucleated Red Blood Cells % 0.1
[2020-02-02] MEDS ORDERED: fentaNYL 100 mcg/2 ml 50 MCG/ML VIAL ONE (10:55)
[2020-02-02] MEDS ORDERED: Midazolam 5 mg/5 ml VIAL 1 mg/ml 5 ml VIAL (5 mg) ONE (10:55)
[2020-02-02] MEDS ORDERED: Naloxone 0.4 mg VIAL 0.4 mg/ml 1 ml VIAL ONE (10:56)
[2020-02-02] MEDS ORDERED: Flumazenil 0.5 mg/5 ml 0.1 MG/ML 5 ml VIAL ONE (10:56)
[2020-02-03 07:19] LABS: Hematocrit 35 % (42-52); Hemoglobin 12.1 g/dL (14.0-18.0); Mean Corpuscular HGB Conc 35 g/dL (31-36); Mean Corpuscular Hemoglobin 31 pg (27-31); Mean Corpuscular Volume 89 fL (80-94); Platelet Count 121 10^3/uL (150-450); Red Blood Count 3.88 10^6 /uL (4.18-5.48); Red Cell Distribution Width 16 % (10-15); White Blood Count 1.7 10^3/uL (3.5-10.8)
[2020-02-03 07:36] LABS: ABS Basophils 0.1 10^3/ul (0-0.2); ABS Lymphocytes 0.4 10^3/ul (1.0-4.8); ABS Monocytes 0.3 10^3/ul (0-0.8); ABS Neutrophils 0.8 10^3/ul (1.5-7.7); Eosinophil % 2.7 %; Lymphocyte % 27.2 %; Nucleated Red Blood Cells % 0.1
[2020-02-03 07:46] LABS: BUN/Creatinine Ratio 17.9 (8-20); Calcium 8.8 mg/dL (8.6-10.3); EGFR African American 123.7 (>60); EGFR Non-African American 102.2 (>60); Potassium 4.1 mmol/L (3.5-5.0)
[2020-02-03] MEDS ORDERED: Enoxaparin 100 MG/ML SYR SUBCUT SCH (10:00)
[2020-02-03] MEDS: Enoxaparin 100 MG/ML SYR SUBCUT SCH (10:23)
[2020-02-03 11:46] VITALS: BP 101/53
== END 2020-02-03 13:23 | disposition home or self-care (01) | DRG 201 ==
LOC: ED 09:41 → MEDTELE 15:47
PROVIDERS: ADMIT Internal Medicine; ATTEND Internal Medicine

== ENCOUNTER 2021-06-13 11:35 | Inpatient (IN) ==
[~2021-06-13 11:35] MED LIST: NS 0.9% IVPB SCH; RASBURICASE IVPB SCH
[2021-06-13] MEDS ORDERED: Ondansetron 4 mg VIAL 2 MG/ML 2 ml VIAL IV PRN (12:32)
[2021-06-13] MEDS: NS 0.9% 1000 ml BAG 1,000 ML IV SCH ×2 (16:00→22:31)
[2021-06-13 16:02] LABS: Calcium 7.7 mg/dL (8.6-10.3); eGFR CKD-EPI 26.3 (>60)
[2021-06-13 16:03] LABS: Potassium 5.5 mmol/L (3.5-5.0)
[2021-06-13 16:45] LABS: Albumin 2.9 g/dL (3.2-5.2); Albumin/Globulin Ratio 1.3 (1-3); Globulin 2.2 g/dL (2-4); Total Bilirubin 0.7 mg/dL (0.2-1.0); Total Protein 5.1 g/dL (6.4-8.9); Uric Acid 9.4 mg/dL (4.4-7.6)
[2021-06-14] MEDS: NS 0.9% 1000 ml BAG 1,000 ML IV SCH ×3 (05:54→17:30)
[2021-06-14 08:12] LABS: ABS Eosinophils 0.1 10^3/ul (0-0.6); ABS Lymphocytes 1.8 10^3/ul (1.0-4.8); ABS Monocytes 0.8 10^3/ul (0-0.8); ABS Neutrophils 4.9 10^3/ul (1.5-7.7); Eosinophil % 1.8 %; Hematocrit 37 % (42-52); Hemoglobin 12.3 g/dL (14.0-18.0); Lymphocyte % 23.8 %; Mean Corpuscular HGB Conc 33 g/dL (31-36); Mean Corpuscular Hemoglobin 29 pg (27-31); Mean Corpuscular Volume 89 fL (80-94); Mean Platelet Volume 9.4 fL (7.4-10.4); Nucleated Red Blood Cells % 0.1; Platelet Count 129 10^3/uL (150-450); Red Blood Count 4.17 10^6 /uL (4.18-5.48); Red Cell Distribution Width 15 % (10-15); White Blood Count 7.7 10^3/uL (3.5-10.8)
[2021-06-14 08:30] LABS: Albumin 2.9 g/dL (3.2-5.2); Albumin/Globulin Ratio 1.4 (1-3); Calcium 7.8 mg/dL (8.6-10.3); Globulin 2.1 g/dL (2-4); Total Bilirubin 0.7 mg/dL (0.2-1.0); Uric Acid 7.5 mg/dL (4.4-7.6); eGFR CKD-EPI 23.9 (>60)
[2021-06-14 08:39] LABS: Potassium 5.2 mmol/L (3.5-5.0)
[2021-06-14 11:53] LABS: Phosphorus 4.9 mg/dL (2.5-5.0)
[2021-06-14 12:27] LABS: Urine Appearance Cloudy; Urine Bilirubin Negative (Negative); Urine Blood Negative (Negative); Urine Color Amber; Urine Glucose Negative (Negative); Urine Ketones Negative (Negative); Urine Nitrite Negative (Negative); Urine Protein 1+(30 mg/dL) (Negative); Urine Specific Gravity 1.019 (1.002-1.030); Urine Urobilinogen Negative (Negative)
[2021-06-14 12:41] LABS: Urine Bacteria Absent (Absent); Urine Red Blood Cell 2+(6-10/hpf) (Absent); Urine Squamous Epithelial Cell Present (Absent); Urine White Blood Cell 1+(6-10/hpf) (Absent)
[2021-06-14 16:45] LABS: Calcium 7.8 mg/dL (8.6-10.3); eGFR CKD-EPI 25.3 (>60)
[2021-06-14 16:50] LABS: Potassium 5.4 mmol/L (3.5-5.0)
[2021-06-14] MEDS: Senna TAB 8.6 mg TAB PO PRN (20:39)
[2021-06-15] MEDS: NS 0.9% 1000 ml BAG 1,000 ML IV SCH ×2 (02:26→15:56)
[2021-06-15 05:53] LABS: ABS Eosinophils 0.1 10^3/ul (0-0.6); ABS Lymphocytes 2.1 10^3/ul (1.0-4.8); ABS Monocytes 0.8 10^3/ul (0-0.8); ABS Neutrophils 4.3 10^3/ul (1.5-7.7); Eosinophil % 1.7 %; Hematocrit 37 % (42-52); Hemoglobin 12.3 g/dL (14.0-18.0); Lymphocyte % 28.2 %; Mean Corpuscular HGB Conc 33 g/dL (31-36); Mean Corpuscular Hemoglobin 30 pg (27-31); Mean Corpuscular Volume 89 fL (80-94); Mean Platelet Volume 9.4 fL (7.4-10.4); Nucleated Red Blood Cells % 0.1; Platelet Count 123 10^3/uL (150-450); Red Blood Count 4.14 10^6 /uL (4.18-5.48); Red Cell Distribution Width 15 % (10-15); White Blood Count 7.3 10^3/uL (3.5-10.8)
[2021-06-15 06:10] LABS: Albumin 2.8 g/dL (3.2-5.2); Albumin/Globulin Ratio 1.4 (1-3); Calcium 7.7 mg/dL (8.6-10.3); Phosphorus 4.7 mg/dL (2.5-5.0); Potassium 4.9 mmol/L (3.5-5.0); Total Bilirubin 0.7 mg/dL (0.2-1.0); Total Protein 4.8 g/dL (6.4-8.9); eGFR CKD-EPI 31.4 (>60)
[2021-06-15 09:54] LABS: Uric Acid 6.2 mg/dL (4.4-7.6)
[2021-06-15] MEDS: Magnesium Hydroxide LIQ 30 ML UDC PO PRN (20:53)
[2021-06-15] MEDS: Senna TAB 8.6 mg TAB PO PRN (20:53)
[2021-06-16] MEDS: Magnesium Hydroxide LIQ 30 ML UDC PO PRN (08:57)
[2021-06-16 11:48] LABS: ABS Eosinophils 0.1 10^3/ul (0-0.6); ABS Lymphocytes 2.2 10^3/ul (1.0-4.8); ABS Monocytes 0.8 10^3/ul (0-0.8); ABS Neutrophils 3.8 10^3/ul (1.5-7.7); Eosinophil % 1.7 %; Hematocrit 38 % (42-52); Hemoglobin 12.6 g/dL (14.0-18.0); Lymphocyte % 31.3 %; Mean Corpuscular HGB Conc 33 g/dL (31-36); Mean Corpuscular Hemoglobin 29 pg (27-31); Mean Corpuscular Volume 89 fL (80-94); Mean Platelet Volume 8.6 fL (7.4-10.4); Nucleated Red Blood Cells % 0.2; Platelet Count 137 10^3/uL (150-450); Red Cell Distribution Width 15 % (10-15); White Blood Count 6.9 10^3/uL (3.5-10.8)
[2021-06-16 12:11] LABS: Albumin 3.1 g/dL (3.2-5.2); Albumin/Globulin Ratio 1.5 (1-3); Calcium 8.2 mg/dL (8.6-10.3); Globulin 2.1 g/dL (2-4); Potassium 4.9 mmol/L (3.5-5.0); Total Bilirubin 0.5 mg/dL (0.2-1.0); Total Protein 5.2 g/dL (6.4-8.9); Uric Acid 5.4 mg/dL (4.4-7.6); eGFR CKD-EPI 48.7 (>60)
[2021-06-16 12:25] VITALS: BP 118/58
== END 2021-06-16 13:37 | disposition home or self-care (01) | DRG 469 ==
LOC: CHOAEAST 11:35 → CHOA 11:35 → MEDTELE 11:35 → INTOOBSV 16:11 → MEDTELE 16:11
PROVIDERS: ADMIT Internal Medicine Hematology & Oncology; ATTEND Internal Medicine Hematology & Oncology

== ENCOUNTER 2021-08-17 08:37 | Inpatient (IN) ==
[~2021-08-17 08:37] MED LIST changes: +Dexamethasone IV 8 MG in Premix IV 0 ML IV SCH; +ETOPOSIDE IVPB SCH; -RASBURICASE IVPB SCH; +RITUXIMAB IVPB SCH
[2021-08-17] MEDS ORDERED: diphenhydrAMINE 50 MG/ML INJ SYRINGE *CHOA ONE (09:00)
[2021-08-17] MEDS ORDERED: PALONOSETRON HCL 0.05 MG/ML (0.25 MG) SYRINGE (0.05 MG/ML) ONE (09:00)
[2021-08-17] MEDS: Ondansetron 4 mg VIAL 2 MG/ML 2 ml VIAL IV PRN (22:14)
[2021-08-17] MEDS: NS 0.9% 1000 ml BAG 1,000 ML IV SCH (22:14)
[2021-08-17] MEDS ORDERED: Lorazepam PYXIS KEY PRN (23:52)
[2021-08-18] MEDS ORDERED: Dexamethasone IV 8 MG in Premix IV 0 ML IV SCH
[2021-08-18] MEDS: Scopolamine 1 mg/72hr PATCH TRANSDERM SCH (00:43)
[2021-08-18] MEDS: LORazepam 2 mg VIAL 1 ml IV PUSH PRN ×2 (02:22→11:22)
[2021-08-18 05:11] LABS: Hematocrit 38 % (42-52); Hemoglobin 13.1 g/dL (14.0-18.0); Mean Corpuscular HGB Conc 34 g/dL (31-36); Mean Corpuscular Hemoglobin 30 pg (27-31); Mean Corpuscular Volume 88 fL (80-94); Mean Platelet Volume 7.1 fL (7.4-10.4); Platelet Count 191 10^3/uL (150-450); Red Blood Count 4.34 10^6 /uL (4.18-5.48); Red Cell Distribution Width 18 % (10-15); White Blood Count 5.6 10^3/uL (3.5-10.8)
[2021-08-18 05:33] LABS: Urine Appearance Turbid; Urine Bilirubin Negative (Negative); Urine Blood 3+ (Negative); Urine Color Yellow; Urine Glucose Negative (Negative); Urine Ketones Negative (Negative); Urine Nitrite Negative (Negative); Urine Protein Negative (Negative); Urine Specific Gravity 1.015 (1.002-1.030); Urine Urobilinogen Negative (Negative)
[2021-08-18 06:01] LABS: Albumin 2.7 g/dL (3.2-5.2); Albumin/Globulin Ratio 2.1 (1-3); Calcium 7.5 mg/dL (8.6-10.3); Globulin 1.3 g/dL (2-4); Total Bilirubin 0.6 mg/dL (0.2-1.0); eGFR CKD-EPI 52.5 (>60)
[2021-08-18 06:15] LABS: Urine Bacteria Absent (Absent); Urine Red Blood Cell 1+(3-5/hpf) (Absent); Urine White Blood Cell Trace(0-5/hpf) (Absent); Urine Yeast Present (Absent)
[2021-08-18 06:27] LABS: Potassium 6.8 mmol/L (3.5-5.0)
[2021-08-18] MEDS ORDERED: NS 0.9% 1,000 ML IV SCH (07:00)
[2021-08-18 07:19] LABS: Anisocytosis 1+
[2021-08-18 07:21] LABS: ABS Lymphocytes 0.5 10^3/ul (1.0-4.8); ABS Monocytes 0.7 10^3/ul (0-0.8); ABS Neutrophils 4.3 10^3/ul (1.5-7.7); Lymphocyte % 9.1 %; Nucleated Red Blood Cells % 0.1
[2021-08-18] MEDS ORDERED: Lidocaine 1% MPF 5 ML VIAL INJ ONE (08:16)
[2021-08-18] MEDS ORDERED: NS 0.9% 1000 ml BAG 1,000 ML IV ONE (08:19)
[2021-08-18] MEDS ORDERED: Rasburicase 1.5 MG VIAL(NF) IVPB ONE (08:19)
[2021-08-18] MEDS ORDERED: NS 0.9% IVPB ONE ×5 (08:30→14:30)
[2021-08-18] MEDS ORDERED: ETOPOSIDE IVPB ONE ×2 (08:30→14:30)
[2021-08-18] MEDS ORDERED: CARBOPLATIN IVPB ONE ×2 (09:00→14:00)
[2021-08-18] MEDS ORDERED: MESNA IVPB ONE (09:30)
[2021-08-18] MEDS ORDERED: IFOSFAMIDE IVPB ONE (09:30)
[2021-08-18] MEDS: Dexamethasone IV 4 MG/ML VIAL 1 ml VIAL IV SLOW PU SCH (09:58)
[2021-08-18] MEDS ORDERED: Rasburicase 3 MG in NS 0.9% 50 ML 48 ML IVPB ONE (10:00)
[2021-08-18 12:16] LABS: Calcium 6.6 mg/dL (8.6-10.3); Uric Acid 13.9 mg/dL (4.4-7.6)
[2021-08-18] MEDS ORDERED: Lorazepam PYXIS KEY PRN (12:19)
[2021-08-18] MEDS ORDERED: LORazepam 2 mg VIAL 1 ml IV PUSH ONE (12:20)
[2021-08-18 12:40] LABS: Potassium 6.2 mmol/L (3.5-5.0)
[2021-08-18 17:19] LABS: Uric Acid 14.1 mg/dL (4.4-7.6); eGFR CKD-EPI 51.7 (>60)
[2021-08-18 17:22] LABS: Calcium 5.8 mg/dL (8.6-10.3); Potassium 5.8 mmol/L (3.5-5.0)
[2021-08-18] MEDS ORDERED: Calcium Gluconate 2 GM in NS 0.9% 100 ml BAG 100 ML IV ONE (18:11)
[2021-08-18] MEDS: NS 0.9% 1000 ml BAG 1,000 ML IV SCH (21:06)
[2021-08-19] MEDS: Ondansetron 4 mg VIAL 2 MG/ML 2 ml VIAL IV PRN ×2 (02:16→21:11)
[2021-08-19 08:08] LABS: Hematocrit 33 % (42-52); Hemoglobin 11.3 g/dL (14.0-18.0); Mean Corpuscular HGB Conc 34 g/dL (31-36); Mean Corpuscular Hemoglobin 30 pg (27-31); Mean Corpuscular Volume 90 fL (80-94); Mean Platelet Volume 7.3 fL (7.4-10.4); Platelet Count 113 10^3/uL (150-450); Red Blood Count 3.71 10^6 /uL (4.18-5.48); Red Cell Distribution Width 18 % (10-15); White Blood Count 4.3 10^3/uL (3.5-10.8)
[2021-08-19 08:48] LABS: Albumin 2.5 g/dL (3.2-5.2); Albumin/Globulin Ratio 1.8 (1-3); Globulin 1.4 g/dL (2-4); Total Bilirubin 0.4 mg/dL (0.2-1.0); Total Protein 3.9 g/dL (6.4-8.9); Uric Acid 15.3 mg/dL (4.4-7.6); eGFR CKD-EPI 45.9 (>60)
[2021-08-19 08:51] LABS: Potassium 5.6 mmol/L (3.5-5.0)
[2021-08-19] MEDS: Dexamethasone IV 4 MG/ML VIAL 1 ml VIAL IV SLOW PU SCH (08:55)
[2021-08-19 08:57] LABS: Calcium 5.3 mg/dL (8.6-10.3)
[2021-08-19] MEDS ORDERED: Rasburicase 1.5 MG VIAL(NF) IVPB SCH (09:00)
[2021-08-19] MEDS ORDERED: ETOPOSIDE IVPB ONE ×2 (09:00→09:30)
[2021-08-19] MEDS ORDERED: NS 0.9% IVPB ONE ×4 (09:00→21:00)
[2021-08-19] MEDS ORDERED: Calcium Gluconate 4 GM in NS 0.9% 250 ml 250 ML IVPB ONE (09:21)
[2021-08-19 09:22] LABS: RBC Morphology Normal (Normal)
[2021-08-19 09:25] LABS: ABS Lymphocytes 0.1 10^3/ul (1.0-4.8); ABS Monocytes 0.1 10^3/ul (0-0.8); Eosinophil % 0.2 %; Lymphocyte % 3.4 %; Nucleated Red Blood Cells % 0.1
[2021-08-19] MEDS ORDERED: NS 0.9% 1,000 ML IV ONE (09:30)
[2021-08-19] MEDS ORDERED: IFOSFAMIDE IVPB ONE (09:30)
[2021-08-19] MEDS ORDERED: MESNA IVPB ONE (09:30)
[2021-08-19] MEDS: Rasburicase 3 MG in NS 0.9% 50 ML 48 ML IVPB SCH (10:56)
[2021-08-19 19:12] LABS: Potassium 5.6 mmol/L (3.5-5.0)
[2021-08-19 19:20] LABS: eGFR CKD-EPI 44.6 (>60)
[2021-08-19] MEDS ORDERED: CALCIUM GLUCONATE IVPB ONE (21:00)
[2021-08-19 21:06] LABS: Magnesium 2.7 mg/dL (1.9-2.7)
[2021-08-19 23:40] LABS: Calcium 5.5 mg/dL (8.6-10.3)
[2021-08-20] MEDS: Ondansetron 4 mg VIAL 2 MG/ML 2 ml VIAL IV PRN ×2 (00:51→07:41)
[2021-08-20 05:46] LABS: Hematocrit 35 % (42-52); Hemoglobin 11.6 g/dL (14.0-18.0); Mean Corpuscular HGB Conc 33 g/dL (31-36); Mean Corpuscular Hemoglobin 30 pg (27-31); Mean Corpuscular Volume 90 fL (80-94); Mean Platelet Volume 7.7 fL (7.4-10.4); Platelet Count 121 10^3/uL (150-450); Red Blood Count 3.85 10^6 /uL (4.18-5.48); Red Cell Distribution Width 18 % (10-15); White Blood Count 3.6 10^3/uL (3.5-10.8)
[2021-08-20 06:10] LABS: Albumin 2.8 g/dL (3.2-5.2); Albumin/Globulin Ratio 1.9 (1-3); Globulin 1.5 g/dL (2-4); Total Bilirubin 0.4 mg/dL (0.2-1.0); Total Protein 4.3 g/dL (6.4-8.9); Uric Acid 10.7 mg/dL (4.4-7.6); eGFR CKD-EPI 44.3 (>60)
[2021-08-20 06:12] LABS: Potassium 5.2 mmol/L (3.5-5.0)
[2021-08-20 06:24] LABS: RBC Morphology Normal (Normal)
[2021-08-20 06:28] LABS: ABS Lymphocytes 0.1 10^3/ul (1.0-4.8); ABS Monocytes 0.1 10^3/ul (0-0.8); ABS Neutrophils 3.3 10^3/ul (1.5-7.7); Eosinophil % 0.1 %
[2021-08-20 06:30] LABS: Calcium 5.8 mg/dL (8.6-10.3)
[2021-08-20] MEDS: NS 0.9% 1000 ml BAG 1,000 ML IV SCH (07:37)
[2021-08-20] MEDS ORDERED: Calcium Gluconate 4 GM in NS 0.9% 250 ml 250 ML IVPB ONE (10:00)
[2021-08-20] MEDS: Rasburicase 3 MG in NS 0.9% 50 ML 48 ML IVPB SCH (12:19)
[2021-08-20 12:22] LABS: Urine Appearance Clear; Urine Bilirubin Negative (Negative); Urine Blood 2+ (Negative); Urine Color Straw; Urine Glucose 1+(50 mg/dL) (Negative); Urine Ketones 2+ (Negative); Urine Nitrite Negative (Negative); Urine Protein Negative (Negative); Urine Specific Gravity 1.013 (1.002-1.030); Urine Urobilinogen Negative (Negative)
[2021-08-20 12:35] LABS: Urine Bacteria 1+ (Absent); Urine Red Blood Cell Trace(0-2/hpf) (Absent); Urine White Blood Cell Trace(0-5/hpf) (Absent)
[2021-08-20] MEDS ORDERED: Calcium Gluconate 2 GM in NS 0.9% 100 ml BAG 100 ML IV ONE (14:39)
[2021-08-20 16:09] LABS: Magnesium 2.6 mg/dL (1.9-2.7); Potassium 4.7 mmol/L (3.5-5.0); eGFR CKD-EPI 43.4 (>60)
[2021-08-20] MEDS: CALCIUM GLUCONATE 1GM/50ML NS BAG IV SCH ×2 (16:25→21:00)
[2021-08-20 16:32] LABS: Calcium 6.2 mg/dL (8.6-10.3)
[2021-08-20] MEDS ORDERED: Adenosine 3 MG/ML 2 ml VIAL (6 mg) ONE ×2 (17:10→17:17)
[2021-08-20 17:27] LABS: PCO2 Arterial 32 mmHg (35-45); PO2 Arterial 86 mmHg (80-100)
[2021-08-20] MEDS ORDERED: Propofol 10 MG/ML 20 ML BTL IV PUSH ONE (17:29)
[2021-08-20] MEDS ORDERED: Diltiazem IV push/loading dose 5 MG/ML 5 ML vial (25 mg) ONE (17:37)
[2021-08-20] MEDS ORDERED: Norepinephrine 16MCG/ML BAGD5W 4,000 MCG/250 ML BAG IV ONE (17:37)
[2021-08-20] MEDS ORDERED: Diltiazem IV BAG D5W Premix 125 MG/125 ML BAG IV SCH (18:00)
[2021-08-20 18:23] LABS: Hematocrit 40 % (42-52); Mean Corpuscular HGB Conc 33 g/dL (31-36); Mean Corpuscular Hemoglobin 30 pg (27-31); Mean Corpuscular Volume 92 fL (80-94); Mean Platelet Volume 7.9 fL (7.4-10.4); Platelet Count 155 10^3/uL (150-450); Red Blood Count 4.32 10^6 /uL (4.18-5.48); Red Cell Distribution Width 18 % (10-15); White Blood Count 3.8 10^3/uL (3.5-10.8)
[2021-08-20] MEDS: Norepinephrine 16MCG/ML BAGD5W 4,000 MCG/250 ML BAG IV SCH (18:30)
[2021-08-20] MEDS ORDERED: Lactated Ringers 1000 ml BAG 1,000 ML IV ONE (18:31)
[2021-08-20 18:45] LABS: ABS Lymphocytes 0.5 10^3/ul (1.0-4.8); ABS Monocytes 0.1 10^3/ul (0-0.8); ABS Neutrophils 3.3 10^3/ul (1.5-7.7); Lymphocyte % 12.2 %
[2021-08-20 18:47] LABS: Albumin/Globulin Ratio 1.8 (1-3); Calcium 7.1 mg/dL (8.6-10.3); Globulin 1.7 g/dL (2-4); Total Bilirubin 0.5 mg/dL (0.2-1.0); Total Protein 4.7 g/dL (6.4-8.9); eGFR CKD-EPI 44.3 (>60)
[2021-08-20 18:49] LABS: Potassium 5.2 mmol/L (3.5-5.0)
[2021-08-20 18:53] LABS: Urine Appearance Clear; Urine Bilirubin Negative (Negative); Urine Blood 2+ (Negative); Urine Color Straw; Urine Glucose 1+(50 mg/dL) (Negative); Urine Ketones 1+ (Negative); Urine Nitrite Negative (Negative); Urine Protein Negative (Negative); Urine Specific Gravity 1.013 (1.002-1.030); Urine Urobilinogen Negative (Negative)
[2021-08-20 19:02] LABS: Urine Bacteria Absent (Absent); Urine Red Blood Cell 2+(6-10/hpf) (Absent); Urine White Blood Cell 1+(6-10/hpf) (Absent)
[2021-08-20] MEDS ORDERED: Iodixanol (CONTRAST) 320 MG/ML 100 ML SDV IV ONE (19:32)
[2021-08-20] MEDS ORDERED: Propofol 10 mg/ml 100 ML BTL 100 ML ONE (19:39)
[2021-08-20] MEDS ORDERED: Calcium CHLORIDE 10% SYRINGE 1 GM/10 ML IV ONE (19:52)
[2021-08-20] MEDS ORDERED: Norepinephrine 16MCG/ML BAG NS 4,000 MCG/250 ML BAG IV SCH (20:00)
[2021-08-20] MEDS: Propofol 10 mg/ml 100 ML BTL 100 ML IV SCH ×2 (21:01→22:09)
[2021-08-20] MEDS: Heparin DRIP 25,000 UNITS BAG 25,000 UNITS/500 ML BAG IV SCH (21:32)
[2021-08-20] MEDS: Chlorhexidine MOUTHWASH 0.12% 15 ML UDC TOPICAL SCH (21:40)
[2021-08-20] MEDS: Pantoprazole VIAL 40 MG VIAL IV SCH (21:40)
[2021-08-20 21:54] LABS: High Sensitivity Troponin 1 Hr 18 pg/mL (<20)
[2021-08-20] MEDS ORDERED: Heparin 5000 UNITS/ML 1 mL VIAL IV SCH (22:00)
[2021-08-20 22:04] LABS: eGFR CKD-EPI 44.6 (>60)
[2021-08-20] MEDS ORDERED: NS 0.9% 1000 ml BAG 1,000 ML IV SCH (22:21)
[2021-08-21 01:45] LABS: Hematocrit 36 % (42-52); Hemoglobin 11.8 g/dL (14.0-18.0)
[2021-08-21] MEDS: Chlorhexidine MOUTHWASH 0.12% 15 ML UDC TOPICAL SCH ×6 (01:54→20:26)
[2021-08-21] MEDS: Scopolamine 1 mg/72hr PATCH TRANSDERM SCH (01:55)
[2021-08-21] MEDS: Propofol 10 mg/ml 100 ML BTL 100 ML IV SCH ×5 (01:59→17:35)
[2021-08-21 03:58] LABS: Hematocrit 35 % (42-52); Hemoglobin 11.7 g/dL (14.0-18.0); Mean Corpuscular HGB Conc 34 g/dL (31-36); Mean Corpuscular Hemoglobin 30 pg (27-31); Mean Corpuscular Volume 90 fL (80-94); Mean Platelet Volume 7.7 fL (7.4-10.4); Platelet Count 120 10^3/uL (150-450); Red Blood Count 3.89 10^6 /uL (4.18-5.48); Red Cell Distribution Width 18 % (10-15); White Blood Count 2.1 10^3/uL (3.5-10.8)
[2021-08-21] MEDS: Norepinephrine 16MCG/ML BAGD5W 4,000 MCG/250 ML BAG IV SCH (04:37)
[2021-08-21 04:42] LABS: Albumin 2.9 g/dL (3.2-5.2)
[2021-08-21 04:45] LABS: ABS Lymphocytes 0.2 10^3/ul (1.0-4.8); ABS Neutrophils 1.8 10^3/ul (1.5-7.7); Anisocytosis 1+; Eosinophil % 0.2 %; Lymphocyte % 9.2 %
[2021-08-21 04:48] LABS: Albumin/Globulin Ratio 1.7 (1-3); Globulin 1.7 g/dL (2-4); Total Protein 4.6 g/dL (6.4-8.9)
[2021-08-21 04:52] LABS: ALT 13 U/L (7-52); Alkaline Phosphatase 46 U/L (35-149); Anion Gap 10 mmol/L (2-11); Blood Urea Nitrogen 83 mg/dL (6-24); CO2 Carbon Dioxide 21 mmol/L (22-32); Calcium 6.5 mg/dL (8.6-10.3); Chloride 114 mmol/L (101-111); Glucose 135 mg/dL (70-100); Sodium 145 mmol/L (135-145); eGFR CKD-EPI 43.7 (>60)
[2021-08-21 05:23] LABS: Magnesium 2.6 mg/dL (1.9-2.7); Potassium Redraw 4.9 mmol/L (3.5-5.0)
[2021-08-21] MEDS ORDERED: Diltiazem IV push/loading dose 5 MG/ML 5 ML vial (25 mg) IV SLOW PU ONE (05:37)
[2021-08-21] MEDS ORDERED: Calcium Gluconate 3 GM in NS 0.9% 250 ml 250 ML IV ONE (05:37)
[2021-08-21] MEDS ORDERED: Diltiazem IV push/loading dose 5 MG/ML 5 ML vial (25 mg) ONE (05:42)
[2021-08-21] MEDS ORDERED: Calcium Gluconate 4 GM in NS 0.9% 250 ml 250 ML IVPB ONE (06:15)
[2021-08-21] MEDS ORDERED: PHENYLEPHRINE DRIP IVPREMIX 50 MG/250 ML BAG IV ONE (08:31)
[2021-08-21 08:45] LABS: Phosphorus 11.2 mg/dL (2.5-5.0)
[2021-08-21] MEDS ORDERED: Digoxin IV 0.5 MG/2 ML AMP (0.25 MG/ML) IV SLOW PU ONE (09:01)
[2021-08-21] MEDS: Pantoprazole VIAL 40 MG VIAL IV SCH (09:08)
[2021-08-21 09:21] LABS: Uric Acid 5.4 mg/dL (4.4-7.6)
[2021-08-21] MEDS ORDERED: [UNRECOGNIZED DRUG - OTHER] NG TUBE STA (09:29)
[2021-08-21] MEDS: Rasburicase 3 MG in NS 0.9% 50 ML 48 ML IVPB SCH (09:38)
[2021-08-21] MEDS: Diltiazem (ADVAN VIAL) 100 MG/100 ML ADDV.BAG IV SCH ×2 (13:50→19:51)
[2021-08-21] MEDS: Heparin DRIP 25,000 UNITS BAG 25,000 UNITS/500 ML BAG IV SCH (13:56)
[2021-08-21] MEDS: Saline FLUSH-CENTRAL 10 ML SYRINGE CENT\\PICC SCH (15:54)
[2021-08-21] MEDS: Digoxin IV 0.5 MG/2 ML AMP (0.25 MG/ML) IV SLOW PU SCH ×2 (16:06→20:22)
[2021-08-21 18:42] LABS: Chloride 118 mmol/L (101-111); Potassium 5.1 mmol/L (3.5-5.0); Sodium 149 mmol/L (135-145)
[2021-08-21 22:00] LABS: Calcium 6.8 mg/dL (8.6-10.3); Magnesium 2.6 mg/dL (1.9-2.7); Phosphorus 10.3 mg/dL (2.5-5.0); Potassium 5.1 mmol/L (3.5-5.0); eGFR CKD-EPI 39.1 (>60)
[2021-08-22] MEDS: Propofol 10 mg/ml 100 ML BTL 100 ML IV SCH ×6 (00:21→23:21)
[2021-08-22] MEDS ORDERED: Calcium Gluconate 4 GM in NS 0.9% 250 ml 250 ML IVPB ONE ×2 (00:30→20:00)
[2021-08-22] MEDS: Chlorhexidine MOUTHWASH 0.12% 15 ML UDC TOPICAL SCH ×6 (02:06→20:40)
[2021-08-22] MEDS: Saline FLUSH-CENTRAL 10 ML SYRINGE CENT\\PICC SCH ×2 (02:10→13:52)
[2021-08-22] MEDS: Heparin DRIP 25,000 UNITS BAG 25,000 UNITS/500 ML BAG IV SCH ×2 (02:45→15:29)
[2021-08-22] MEDS: PHENYLEPHRINE DRIP IVPREMIX 50 MG/250 ML BAG IV SCH ×3 (02:47→23:22)
[2021-08-22] MEDS: Diltiazem (ADVAN VIAL) 100 MG/100 ML ADDV.BAG IV SCH ×2 (03:19→11:35)
[2021-08-22] MEDS: oxyCODONE 5 mg/5 ml ORAL.SOLN UDC PO PRN ×2 (03:22→09:00)
[2021-08-22 05:18] LABS: Hematocrit 32 % (42-52); Hemoglobin 10.7 g/dL (14.0-18.0); Mean Corpuscular HGB Conc 33 g/dL (31-36); Mean Corpuscular Hemoglobin 30 pg (27-31); Mean Corpuscular Volume 90 fL (80-94); Platelet Count 68 10^3/uL (150-450); Red Blood Count 3.57 10^6 /uL (4.18-5.48); Red Cell Distribution Width 18 % (10-15); White Blood Count 0.1 10^3/uL (3.5-10.8)
[2021-08-22 05:36] LABS: RBC Morphology Normal (Normal)
[2021-08-22 05:37] LABS: ABS Lymphocytes 0.1 10^3/ul (1.0-4.8); Eosinophil % 2.6 %; Lymphocyte % 72.5 %; Nucleated Red Blood Cells % 0.6
[2021-08-22 05:55] LABS: Calcium 7.2 mg/dL (8.6-10.3); Potassium 4.8 mmol/L (3.5-5.0)
[2021-08-22 05:59] LABS: Phosphorus 10.3 mg/dL (2.5-5.0); Uric Acid 5.8 mg/dL (4.4-7.6); eGFR CKD-EPI 36.2 (>60)
[2021-08-22 08:44] LABS: Magnesium 2.5 mg/dL (1.9-2.7)
[2021-08-22] MEDS: Pantoprazole VIAL 40 MG VIAL IV SCH (08:59)
[2021-08-22] MEDS ORDERED: Zosyn per Pharmacy NOTE FOLLOW UP SCH (09:00)
[2021-08-22] MEDS: Rasburicase 3 MG in NS 0.9% 50 ML 48 ML IVPB SCH (09:00)
[2021-08-22] MEDS ORDERED: NORMOSOL-R pH 7.4 1000 mL BAG 1,000 ML IV SCH (09:00)
[2021-08-22] MEDS ORDERED: fentaNYL 100 mcg/2 ml 50 MCG/ML VIAL IV SLOW PU ONE (09:00)
[2021-08-22] MEDS ORDERED: Piperacillin/Tazobac ADVAN 3.375 GM in NS 0.9% 100 ml BAG 100 ML IV ONE (09:00)
[2021-08-22 10:18] LABS: PCO2 Arterial 40 mmHg (35-45); PO2 Arterial 149 mmHg (80-100)
[2021-08-22] MEDS ORDERED: Polyethylene Glycol 3350 17 GM PACKET PO PRN (14:26)
[2021-08-22] MEDS ORDERED: Senna TAB 8.6 mg TAB PO PRN (14:26)
[2021-08-22] MEDS: Acetaminophen IV 1 GM/100ML 100 ML IV PRN (14:43)
[2021-08-22] MEDS ORDERED: Vancomycin 1,000 MG in NS 0.9% 250 ml 250 ML IVPB ONE (15:07)
[2021-08-22] MEDS ORDERED: Norepinephrine 16MCG/ML BAGD5W 4,000 MCG/250 ML BAG IV ONE (15:22)
[2021-08-22] MEDS ORDERED: Piperacillin/Tazobac ADVAN 4.5 GM in NS 0.9% 100 ml BAG 100 ML IV SCH (15:30)
[2021-08-22] MEDS ORDERED: Norepinephrine 16MCG/ML BAG NS 4,000 MCG/250 ML BAG IV SCH (16:00)
[2021-08-22] MEDS ORDERED: Vancomycin per Pharmacy 1 EA NOTE FOLLOW UP SCH (16:00)
[2021-08-22] MEDS ORDERED: Aztreonam 2 GM in NS 0.9% 100 ml BAG 100 ML IV SCH (16:00)
[2021-08-22] MEDS ORDERED: Cefepime ADVAN 1 GM in NS 0.9% 50 ML 50 ML IVPB SCH (16:00)
[2021-08-22] MEDS ORDERED: Hydrocortisone INJ 100 MG/2ML 2 ML VIAL IV ONE (16:00)
[2021-08-22] MEDS ORDERED: Vancomycin 1,500 MG in NS 0.9% 250 ml 250 ML IVPB ONE (16:00)
[2021-08-22] MEDS: Piperacillin/Tazobactam VIAL 4.5 GM in NS 0.9% 100 ml BAG 100 ML IVPB SCH ×2 (16:15→23:39)
[2021-08-22] MEDS ORDERED: Digoxin LIQ ORALSYR 0.05 MG/ML 1 ML PO SCH (17:00)
[2021-08-22 18:07] LABS: Hematocrit 32 % (42-52); Hemoglobin 10.5 g/dL (14.0-18.0); Mean Corpuscular HGB Conc 33 g/dL (31-36); Mean Corpuscular Hemoglobin 29 pg (27-31); Mean Corpuscular Volume 90 fL (80-94); Mean Platelet Volume 7.6 fL (7.4-10.4); Platelet Count 54 10^3/uL (150-450); Red Blood Count 3.57 10^6 /uL (4.18-5.48); Red Cell Distribution Width 19 % (10-15); White Blood Count 0.1 10^3/uL (3.5-10.8)
[2021-08-22] MEDS: Aztreonam 2 GM in NS 0.9% 100 ml BAG 100 ML IV SCH (18:22)
[2021-08-22 19:20] LABS: eGFR CKD-EPI 31.5 (>60)
[2021-08-22 19:21] LABS: Calcium 6.4 mg/dL (8.6-10.3)
[2021-08-22 20:07] LABS: PCO2 Arterial 37 mmHg (35-45); PO2 Arterial 104 mmHg (80-100)
[2021-08-22 20:23] LABS: ABS Lymphocytes 0.1 10^3/ul (1.0-4.8); Eosinophil % 4.5 %; Lymphocyte % 85.9 %; Macrocytosis 1+; Microcytosis 1+; Nucleated Red Blood Cells % 2.4
[2021-08-22] MEDS ORDERED: NS 0.9% 250 ml 250 ML ONE (20:30)
[2021-08-22] MEDS ORDERED: NS 0.9% 100 ml BAG 100 ML ONE ×2 (20:30→22:44)
[2021-08-22] MEDS: Norepinephrine 16MCG/ML BAGD5W 4,000 MCG/250 ML BAG IV SCH ×2 (21:12→23:21)
[2021-08-22] MEDS: Hydrocortisone INJ 100 MG/2ML 2 ML VIAL IV SCH (23:26)
[2021-08-23] MEDS ORDERED: NS 0.9% 100 ml BAG 100 ML ONE ×2 (01:23→05:40)
[2021-08-23] MEDS: Propofol 10 mg/ml 100 ML BTL 100 ML IV SCH ×4 (01:41→21:39)
[2021-08-23] MEDS: Saline FLUSH-CENTRAL 10 ML SYRINGE CENT\\PICC SCH ×2 (01:42→13:13)
[2021-08-23] MEDS: Aztreonam 2 GM in NS 0.9% 100 ml BAG 100 ML IV SCH ×3 (01:42→21:01)
[2021-08-23] MEDS: Chlorhexidine MOUTHWASH 0.12% 15 ML UDC TOPICAL SCH ×6 (01:42→20:22)
[2021-08-23] MEDS: PHENYLEPHRINE DRIP IVPREMIX 50 MG/250 ML BAG IV SCH ×5 (03:29→22:48)
[2021-08-23 04:47] LABS: Hematocrit 31 % (42-52); Hemoglobin 10.1 g/dL (14.0-18.0); Mean Corpuscular HGB Conc 33 g/dL (31-36); Mean Corpuscular Hemoglobin 30 pg (27-31); Mean Corpuscular Volume 91 fL (80-94); Mean Platelet Volume 7.4 fL (7.4-10.4); Platelet Count 39 10^3/uL (150-450); Red Blood Count 3.36 10^6 /uL (4.18-5.48); Red Cell Distribution Width 19 % (10-15); White Blood Count 0.1 10^3/uL (3.5-10.8)
[2021-08-23 05:00] LABS: Digoxin 1.1 ng/ml (0.8-2.0); Phosphorus 11.6 mg/dL (2.5-5.0); Vancomycin Trough 15.3 mcg/mL; eGFR CKD-EPI 25.8 (>60)
[2021-08-23 05:30] LABS: ABS Lymphocytes 0.1 10^3/ul (1.0-4.8); Eosinophil % 1.6 %; Nucleated Red Blood Cells % 1.2
[2021-08-23 05:33] LABS: Calcium 6.3 mg/dL (8.6-10.3); Potassium 5.2 mmol/L (3.5-5.0)
[2021-08-23] MEDS ORDERED: Vancomycin Random Level NOTE FOLLOW UP ONE (06:00)
[2021-08-23] MEDS ORDERED: Calcium Gluconate 4 GM in NS 0.9% 250 ml 250 ML IVPB ONE ×2 (06:15→22:30)
[2021-08-23] MEDS: Piperacillin/Tazobactam VIAL 4.5 GM in NS 0.9% 100 ml BAG 100 ML IVPB SCH (06:26)
[2021-08-23] MEDS ORDERED: Dextrose 50% Syringe 50 ml 25 GM/50 ML SYRINGE IV PUSH ONE ×2 (08:07→17:04)
[2021-08-23] MEDS ORDERED: SODIUM ZIRCONIUM CYCLOSILICATE 10 GM PACKET PO ONE ×2 (08:07→22:15)
[2021-08-23] MEDS: Hydrocortisone INJ 100 MG/2ML 2 ML VIAL IV SCH ×2 (08:10→17:26)
[2021-08-23] MEDS: Pantoprazole VIAL 40 MG VIAL IV SCH (08:11)
[2021-08-23] MEDS: Docusate LIQ 100 MG/10 ML UDC PO SCH (08:11)
[2021-08-23] MEDS ORDERED: Vancomycin 1,000 MG - ED ONCE IVPB ONE (09:00)
[2021-08-23 10:51] LABS: Body Fluid WBC 323 /mcL
[2021-08-23 10:55] LABS: Body Fluid Appearance Cloudy; Body Fluid Mono 7 %; Body Fluid Source Pleural Fluid; Body Fluid Total Cells Counted 200
[2021-08-23 10:57] LABS: Body Fluid Color Amber
[2021-08-23] MEDS ORDERED: cefTRIAXone 2 GM ADDV.VIAL 2 GM in NS 0.9% 100 ml BAG 100 ML IV SCH (11:00)
[2021-08-23] MEDS: cefTRIAXone 2 GM ADDV.VIAL 2 GM in NS 0.9% 100 ml BAG 100 ML IV SCH ×2 (11:15→23:17)
[2021-08-23] MEDS: Polyethylene Glycol 3350 17 GM PACKET PO SCH (11:18)
[2021-08-23 11:49] LABS: PCO2 Arterial 35 mmHg (35-45); PO2 Arterial 99 mmHg (80-100)
[2021-08-23 12:00] LABS: Hematocrit 29 % (42-52); Hemoglobin 9.6 g/dL (14.0-18.0); Mean Corpuscular HGB Conc 33 g/dL (31-36); Mean Corpuscular Hemoglobin 30 pg (27-31); Mean Corpuscular Volume 91 fL (80-94); Mean Platelet Volume 8.3 fL (7.4-10.4); Platelet Count 42 10^3/uL (150-450); Red Blood Count 3.19 10^6 /uL (4.18-5.48); Red Cell Distribution Width 19 % (10-15); White Blood Count 0.1 10^3/uL (3.5-10.8)
[2021-08-23 12:37] LABS: ABS Lymphocytes 0.1 10^3/ul (1.0-4.8); Eosinophil % 2.8 %; Lymphocyte % 86.7 %; Nucleated Red Blood Cells % 2.1
[2021-08-23] MEDS: Artificial Tear OPHTH.OINT 3.5 GM BOTH EYES PRN (13:46)
[2021-08-23] MEDS ORDERED: CALCIUM GLUCONATE 1GM/50ML NS 1 GM/50 ML BAG IV ONE (14:18)
[2021-08-23] MEDS ORDERED: Naloxone 0.4 mg VIAL 0.4 mg/ml 1 ml VIAL ONE (14:55)
[2021-08-23] MEDS ORDERED: fentaNYL 100 mcg/2 ml 50 MCG/ML VIAL ONE (14:55)
[2021-08-23 15:43] LABS: eGFR CKD-EPI 23.1 (>60)
[2021-08-23] MEDS ORDERED: Rocuronium 50 mg VIAL 10 mg/ml 5 ml VIAL (50 mg) ONE (16:02)
[2021-08-23 16:05] LABS: Potassium 5.1 mmol/L (3.5-5.0)
[2021-08-23 16:06] LABS: Calcium 6.1 mg/dL (8.6-10.3)
[2021-08-23] MEDS: fentaNYL 100 mcg/2 ml 50 MCG/ML VIAL IV SLOW PU PRN (16:34)
[2021-08-23] MEDS ORDERED: Metoprolol Tartrate 5 mg VIAL 5 ml VIAL (1 mg/ml) ONE (16:42)
[2021-08-23] MEDS ORDERED: Amiodarone 360 MG IVPREMIX 0 MG/0 ML BAG IV ONE (16:44)
[2021-08-23] MEDS ORDERED: Diltiazem IV push/loading dose 5 MG/ML 5 ML vial (25 mg) ONE (16:45)
[2021-08-23] MEDS ORDERED: Amiodarone 150 mg IVPREMIX 150 MG/100 ML BAG IV ONE ×2 (16:45→17:49)
[2021-08-23] MEDS ORDERED: Diltiazem IV push/loading dose 5 MG/ML 5 ML vial (25 mg) IV SLOW PU ONE (17:04)
[2021-08-23] MEDS ORDERED: Rocuronium 50 mg VIAL 10 mg/ml 5 ml VIAL (50 mg) IV ONE (17:04)
[2021-08-23] MEDS ORDERED: Metoprolol Tartrate 5 mg VIAL 5 ml VIAL (1 mg/ml) IV ONE (17:05)
[2021-08-23 17:28] LABS: Magnesium 2.3 mg/dL (1.9-2.7)
[2021-08-23 17:46] LABS: PCO2 Arterial 50 mmHg (35-45); PO2 Arterial 73 mmHg (80-100)
[2021-08-23] MEDS ORDERED: Sodium Bicarbonate 8.4% SYR 50 ml SYRINGE IV ONE ×2 (17:48→17:54)
[2021-08-23] MEDS ORDERED: Sodium Bicarbonate 8.4% VIAL 1 MEQ/ML 50 ml VIAL (50 meq) ONE ×2 (17:49→17:54)
[2021-08-23] MEDS ORDERED: Amiodarone 360 MG IVPREMIX 360 MG/200 ML BAG IV ONE (17:58)
[2021-08-23] MEDS ORDERED: Amiodarone 360 MG IVPREMIX 360 MG/200 ML BAG IV SCH (17:59)
[2021-08-23] MEDS ORDERED: CALCIUM GLUCONATE 1GM/50ML NS BAG IV ONE (18:00)
[2021-08-23] MEDS: Sodium Bicarb 8.4% Vial 50 ML 150 MEQ in D5W 1000 ml BAG 850 ML IV SCH (19:44)
[2021-08-23 20:52] LABS: PCO2 Arterial 39 mmHg (35-45); PO2 Arterial 100 mmHg (80-100)
[2021-08-23 21:34] LABS: eGFR CKD-EPI 22.3 (>60)
[2021-08-23 21:42] LABS: Calcium 6.3 mg/dL (8.6-10.3); Potassium 5.1 mmol/L (3.5-5.0)
[2021-08-23 22:09] LABS: Hematocrit 32 % (42-52); Hemoglobin 11.1 g/dL (14.0-18.0); Mean Corpuscular HGB Conc 34 g/dL (31-36); Mean Corpuscular Hemoglobin 31 pg (27-31); Mean Corpuscular Volume 90 fL (80-94); Mean Platelet Volume 7.9 fL (7.4-10.4); Platelet Count 32 10^3/uL (150-450); Red Blood Count 3.58 10^6 /uL (4.18-5.48); Red Cell Distribution Width 18 % (10-15); White Blood Count 0.1 10^3/uL (3.5-10.8)
[2021-08-23 22:11] LABS: ABS Lymphocytes 0.1 10^3/ul (1.0-4.8); Eosinophil % 4.6 %; Lymphocyte % 92.5 %; Nucleated Red Blood Cells % 1.2
[2021-08-23] MEDS: Amiodarone 360 MG IVPREMIX 360 MG/200 ML BAG IV SCH (23:57)
[2021-08-24] MEDS: fentaNYL 100 mcg/2 ml 50 MCG/ML VIAL IV SLOW PU PRN ×2 (00:03→05:10)
[2021-08-24] MEDS: Hydrocortisone INJ 100 MG/2ML 2 ML VIAL IV SCH ×3 (00:12→16:29)
[2021-08-24 00:29] LABS: PCO2 Arterial 43 mmHg (35-45); PO2 Arterial 109 mmHg (80-100)
[2021-08-24] MEDS: Saline FLUSH-CENTRAL 10 ML SYRINGE CENT\\PICC SCH ×2 (00:49→15:34)
[2021-08-24] MEDS: Chlorhexidine MOUTHWASH 0.12% 15 ML UDC TOPICAL SCH ×6 (01:45→20:36)
[2021-08-24] MEDS: PHENYLEPHRINE DRIP IVPREMIX 50 MG/250 ML BAG IV SCH ×6 (02:30→22:56)
[2021-08-24] MEDS: Propofol 10 mg/ml 100 ML BTL 100 ML IV SCH ×4 (04:30→21:30)
[2021-08-24 05:25] LABS: Activated Partial Thrombo Time 39.4 seconds (26.0-38.0); INR 1.34 (0.86-1.15)
[2021-08-24 05:47] LABS: Albumin/Globulin Ratio 1.2 (1-3); Calcium 6.5 mg/dL (8.6-10.3); Digoxin 1.5 ng/ml (0.8-2.0); Direct Bilirubin 0.1 mg/dL (0.03-0.18); Globulin 1.7 g/dL (2-4); Indirect Bilirubin 0.2 mg/dL (0.3-1.0); Phosphorus 12.8 mg/dL (2.5-5.0); Total Bilirubin 0.3 mg/dL (0.2-1.0); Total Protein 3.7 g/dL (6.4-8.9); Uric Acid 2.7 mg/dL (4.4-7.6); eGFR CKD-EPI 20.6 (>60)
[2021-08-24 06:00] LABS: TSH Ultra Thyroid Stim Horm 3.18 mcIU/mL (0.34-5.60)
[2021-08-24] MEDS ORDERED: Vancomycin Random Level NOTE FOLLOW UP ONE (06:00)
[2021-08-24 06:02] LABS: Free T3 1.1 pg/mL (2.5-3.9); Free T4 0.51 ng/dL (0.61-1.12)
[2021-08-24] MEDS: Sodium Bicarb 8.4% Vial 50 ML 150 MEQ in D5W 1000 ml BAG 850 ML IV SCH (08:53)
[2021-08-24] MEDS: Pantoprazole VIAL 40 MG VIAL IV SCH (08:53)
[2021-08-24] MEDS: Docusate LIQ 100 MG/10 ML UDC PO SCH (08:53)
[2021-08-24] MEDS: Polyethylene Glycol 3350 17 GM PACKET PO SCH (09:13)
[2021-08-24 09:15] LABS: Glucose, BF 125 mg/dL
[2021-08-24 09:18] LABS: Fluid Type, Protein, Total PLEURAL; Total Protein, BF 2.1 g/dL
[2021-08-24] MEDS: Aztreonam 2 GM in NS 0.9% 100 ml BAG 100 ML IV SCH ×2 (09:55→20:36)
[2021-08-24 11:12] LABS: Hepatitis B Surface Antigen Nonreactive (Nonreactive)
[2021-08-24 11:17] LABS: Hepatitis B Core IgM Nonreactive (Nonreactive)
[2021-08-24] MEDS: Amiodarone 360 MG IVPREMIX 360 MG/200 ML BAG IV SCH (11:23)
[2021-08-24 11:29] LABS: Hepatitis B Surface Ab Not Immune (Immune)
[2021-08-24] MEDS: cefTRIAXone 2 GM ADDV.VIAL 2 GM in NS 0.9% 100 ml BAG 100 ML IV SCH ×2 (11:39→22:11)
[2021-08-24] MEDS: Artificial Tear OPHTH.OINT 3.5 GM BOTH EYES PRN ×2 (11:43→20:49)
[2021-08-24] MEDS: Heparin 1,000 UNIT/ML 10 ml (10,000 UNITS) CATHLAB/DIALYSIS DIALYSIS ONE ×2 (11:49→14:17)
[2021-08-24 12:43] LABS: PCO2 Arterial 34 mmHg (35-45); PO2 Arterial 104 mmHg (80-100)
[2021-08-24] MEDS: Acetaminophen IV 1 GM/100ML 100 ML IV PRN ×2 (13:12→22:11)
[2021-08-24] MEDS ORDERED: Anidulafungin 200 MG in NS 0.9% 250 ml 200 ML IVPB ONE (15:00)
[2021-08-24] MEDS ORDERED: Metoprolol Tartrate 5 mg VIAL 5 ml VIAL (1 mg/ml) ONE (15:08)
[2021-08-24] MEDS ORDERED: Metoprolol Tartrate 5 mg VIAL 5 ml VIAL (1 mg/ml) IV ONE (15:16)
[2021-08-24 16:51] LABS: Calcium 5.4 mg/dL (8.6-10.3); Digoxin 0.8 ng/ml (0.8-2.0); Magnesium 1.5 mg/dL (1.9-2.7); Phosphorus 5.4 mg/dL (2.5-5.0); eGFR CKD-EPI 51.3 (>60)
[2021-08-24] MEDS ORDERED: Magnesium Sulfate 2 gm BAG 2 GM/50 ML BAG IVPB ONE (16:51)
[2021-08-24] MEDS ORDERED: Calcium Gluconate 2 GM in NS 0.9% 100 ml BAG 100 ML IV ONE (16:52)
[2021-08-24] MEDS ORDERED: Digoxin IV 0.5 MG/2 ML AMP (0.25 MG/ML) IV SLOW PU ONE ×2 (16:52→22:00)
[2021-08-24 21:54] LABS: HIT ELISA 0.052 OD (<0.400); Heparin PF4 Antibody Interp Negative (Negative)
[2021-08-25] MEDS ORDERED: NS 0.9% 100 ml BAG 100 ML ONE ×2 (00:10)
[2021-08-25] MEDS: Chlorhexidine MOUTHWASH 0.12% 15 ML UDC TOPICAL SCH ×7 (00:17→23:11)
[2021-08-25] MEDS: Hydrocortisone INJ 100 MG/2ML 2 ML VIAL IV SCH ×4 (00:17→22:13)
[2021-08-25] MEDS: Saline FLUSH-CENTRAL 10 ML SYRINGE CENT\\PICC SCH ×2 (00:18→13:06)
[2021-08-25] MEDS: PHENYLEPHRINE DRIP IVPREMIX 50 MG/250 ML BAG IV SCH ×4 (02:27→20:26)
[2021-08-25] MEDS: Propofol 10 mg/ml 100 ML BTL 100 ML IV SCH ×3 (02:33→22:08)
[2021-08-25] MEDS: Artificial Tear OPHTH.OINT 3.5 GM BOTH EYES PRN (04:58)
[2021-08-25 05:11] LABS: Hematocrit 31 % (42-52); Hemoglobin 10.3 g/dL (14.0-18.0); Mean Corpuscular HGB Conc 33 g/dL (31-36); Mean Corpuscular Hemoglobin 30 pg (27-31); Mean Corpuscular Volume 89 fL (80-94); Mean Platelet Volume 8.2 fL (7.4-10.4); Platelet Count 9 10^3/uL (150-450); Red Blood Count 3.49 10^6 /uL (4.18-5.48); Red Cell Distribution Width 18 % (10-15); White Blood Count 0.1 10^3/uL (3.5-10.8)
[2021-08-25 06:39] LABS: Calcium 6.9 mg/dL (8.6-10.3); Magnesium 2.3 mg/dL (1.9-2.7); Phosphorus 9.3 mg/dL (2.5-5.0)
[2021-08-25] MEDS: Pantoprazole VIAL 40 MG VIAL IV SCH (08:16)
[2021-08-25 08:19] LABS: ABS Lymphocytes 0.1 10^3/ul (1.0-4.8); Eosinophil % 2.3 %; Lymphocyte % 90.9 %; Nucleated Red Blood Cells % 29.5
[2021-08-25] MEDS: Aztreonam 2 GM in NS 0.9% 100 ml BAG 100 ML IV SCH (08:51)
[2021-08-25] MEDS: Polyethylene Glycol 3350 17 GM PACKET PO SCH (08:53)
[2021-08-25] MEDS: Docusate LIQ 100 MG/10 ML UDC PO SCH (08:53)
[2021-08-25 10:29] LABS: PCO2 Arterial 40 mmHg (35-45); PO2 Arterial 107 mmHg (80-100)
[2021-08-25 10:59] LABS: Eosinophil % 19.4 %; Hematocrit 30 % (42-52); Hemoglobin 10.2 g/dL (14.0-18.0); Lymphocyte % 80.6 %; Mean Corpuscular HGB Conc 34 g/dL (31-36); Mean Corpuscular Hemoglobin 30 pg (27-31); Mean Corpuscular Volume 89 fL (80-94); Mean Platelet Volume 7.6 fL (7.4-10.4); Platelet Count 16 10^3/uL (150-450); Red Blood Count 3.42 10^6 /uL (4.18-5.48); Red Cell Distribution Width 18 % (10-15); White Blood Count < 0.1 10^3/uL (3.5-10.8)
[2021-08-25] MEDS: cefTRIAXone 2 GM ADDV.VIAL 2 GM in NS 0.9% 100 ml BAG 100 ML IV SCH ×2 (11:23→21:06)
[2021-08-25] MEDS: Acetaminophen IV 1 GM/100ML 100 ML IV PRN ×2 (11:51→20:40)
[2021-08-25] MEDS: Heparin 1,000 UNIT/ML 10 ml (10,000 UNITS) CATHLAB/DIALYSIS IV SCH (13:38)
[2021-08-25] MEDS: Anidulafungin 100 MG in NS 0.9% 100 ml BAG 100 ML IVPB SCH (15:33)
[2021-08-25] MEDS ORDERED: Heparin 1,000 UNIT/ML 10 ml (10,000 UNITS) CATHLAB/DIALYSIS DIALYSIS ONE (17:00)
[2021-08-25 21:23] LABS: Magnesium 2.1 mg/dL (1.9-2.7); Potassium 3.7 mmol/L (3.5-5.0)
[2021-08-25 21:28] LABS: eGFR CKD-EPI 39.9 (>60)
[2021-08-25 21:29] LABS: Hematocrit 29 % (42-52); Hemoglobin 9.8 g/dL (14.0-18.0); Mean Corpuscular HGB Conc 34 g/dL (31-36); Mean Corpuscular Hemoglobin 30 pg (27-31); Mean Corpuscular Volume 89 fL (80-94); Mean Platelet Volume 8.7 fL (7.4-10.4); Platelet Count 9 10^3/uL (150-450); Red Blood Count 3.27 10^6 /uL (4.18-5.48); Red Cell Distribution Width 18 % (10-15); White Blood Count 0.1 10^3/uL (3.5-10.8)
[2021-08-25 21:53] LABS: Nucleated Red Blood Cells % 11.9
[2021-08-25] MEDS ORDERED: Digoxin IV 0.5 MG/2 ML AMP (0.25 MG/ML) IV SLOW PU ONE (22:02)
[2021-08-25 23:02] LABS: Phosphorus 6.3 mg/dL (2.5-5.0)
[2021-08-26] MEDS: Saline FLUSH-CENTRAL 10 ML SYRINGE CENT\\PICC SCH ×2 (00:17→15:28)
[2021-08-26] MEDS: Propofol 10 mg/ml 100 ML BTL 100 ML IV SCH ×4 (01:27→21:25)
[2021-08-26] MEDS: PHENYLEPHRINE DRIP IVPREMIX 50 MG/250 ML BAG IV SCH ×2 (01:45→21:30)
[2021-08-26] MEDS: Chlorhexidine MOUTHWASH 0.12% 15 ML UDC TOPICAL SCH ×6 (04:33→23:04)
[2021-08-26 04:47] LABS: Hematocrit 28 % (42-52); Hemoglobin 9.2 g/dL (14.0-18.0); Lymphocyte % 90.5 %; Mean Corpuscular HGB Conc 34 g/dL (31-36); Mean Corpuscular Hemoglobin 30 pg (27-31); Mean Corpuscular Volume 89 fL (80-94); Mean Platelet Volume 7.7 fL (7.4-10.4); Platelet Count 16 10^3/uL (150-450); Red Cell Distribution Width 18 % (10-15); White Blood Count 0 10^3/uL (3.5-10.8)
[2021-08-26 05:30] LABS: Albumin 1.7 g/dL (3.2-5.2); Magnesium 2.1 mg/dL (1.9-2.7)
[2021-08-26 05:36] LABS: Globulin 1.7 g/dL (2-4); Phosphorus 7.4 mg/dL (2.5-5.0); Total Protein 3.4 g/dL (6.4-8.9); Uric Acid 3.1 mg/dL (4.4-7.6)
[2021-08-26 06:03] LABS: Potassium 3.9 mmol/L (3.5-5.0); Total Bilirubin 0.4 mg/dL (0.2-1.0); eGFR CKD-EPI 31.7 (>60)
[2021-08-26] MEDS: Docusate LIQ 100 MG/10 ML UDC PO SCH (07:56)
[2021-08-26] MEDS: Hydrocortisone INJ 100 MG/2ML 2 ML VIAL IV SCH ×3 (07:57→23:04)
[2021-08-26] MEDS: Artificial Tear OPHTH.OINT 3.5 GM BOTH EYES PRN ×3 (07:57→20:01)
[2021-08-26] MEDS: Polyethylene Glycol 3350 17 GM PACKET PO SCH (07:57)
[2021-08-26] MEDS: Pantoprazole VIAL 40 MG VIAL IV SCH (07:57)
[2021-08-26 10:07] LABS: Body Fluid WBC 1346 /mcL
[2021-08-26 10:15] LABS: Body Fluid Source Pleural Fluid
[2021-08-26 10:16] LABS: Body Fluid Appearance Bloody; Body Fluid Color Pink
[2021-08-26] MEDS: cefTRIAXone 2 GM ADDV.VIAL 2 GM in NS 0.9% 100 ml BAG 100 ML IV SCH ×2 (10:47→21:25)
[2021-08-26 11:17] LABS: Body Fluid Other Cells 3; Body Fluid Total Cells Counted 200
[2021-08-26] MEDS ORDERED: Metoprolol Tartrate 5 mg VIAL 5 ml VIAL (1 mg/ml) IV ONE (15:22)
[2021-08-26] MEDS ORDERED: Metoprolol Tartrate 5 mg VIAL 5 ml VIAL (1 mg/ml) ONE (15:28)
[2021-08-26] MEDS: Anidulafungin 100 MG in NS 0.9% 100 ml BAG 100 ML IVPB SCH (16:19)
[2021-08-26] MEDS: Heparin 1,000 UNIT/ML 10 ml (10,000 UNITS) CATHLAB/DIALYSIS IV SCH (16:26)
[2021-08-26 16:41] LABS: Hematocrit 28 % (42-52); Hemoglobin 9.3 g/dL (14.0-18.0); Lymphocyte % 69.2 %; Mean Corpuscular HGB Conc 34 g/dL (31-36); Mean Corpuscular Hemoglobin 30 pg (27-31); Mean Corpuscular Volume 88 fL (80-94); Mean Platelet Volume 7.9 fL (7.4-10.4); Platelet Count 12 10^3/uL (150-450); Red Blood Count 3.13 10^6 /uL (4.18-5.48); Red Cell Distribution Width 18 % (10-15); White Blood Count 0 10^3/uL (3.5-10.8)
[2021-08-26 17:21] LABS: Calcium 7.2 mg/dL (8.6-10.3); Magnesium 1.9 mg/dL (1.9-2.7); Potassium 3.7 mmol/L (3.5-5.0)
[2021-08-26 17:26] LABS: Digoxin 1.2 ng/ml (0.8-2.0); eGFR CKD-EPI 62.9 (>60)
[2021-08-26] MEDS ORDERED: Magnesium Sulfate IV 1GM/100ML 1 GM/100 ML BAG IV ONE (18:04)
[2021-08-26] MEDS: Acetaminophen IV 1 GM/100ML 100 ML IV PRN (18:21)
[2021-08-26] MEDS ORDERED: Adenosine 3 MG/ML 2 ml VIAL (6 mg) ONE ×2 (19:07→19:09)
[2021-08-26] MEDS ORDERED: Adenosine 3 MG/ML 2 ml VIAL (6 mg) IV PUSH ONE ×2 (19:22)
[2021-08-26 20:56] LABS: Hematocrit 29 % (42-52); Hemoglobin 9.6 g/dL (14.0-18.0); Mean Corpuscular HGB Conc 34 g/dL (31-36); Mean Corpuscular Hemoglobin 30 pg (27-31); Mean Corpuscular Volume 89 fL (80-94); Mean Platelet Volume 8.4 fL (7.4-10.4); Red Blood Count 3.21 10^6 /uL (4.18-5.48); Red Cell Distribution Width 18 % (10-15); White Blood Count 0 10^3/uL (3.5-10.8)
[2021-08-26 20:57] LABS: Platelet Count 10 10^3/uL (150-450)
[2021-08-27] MEDS: Propofol 10 mg/ml 100 ML BTL 100 ML IV SCH ×4 (02:44→19:32)
[2021-08-27 04:11] LABS: Hematocrit 25 % (42-52); Hemoglobin 8.7 g/dL (14.0-18.0); Mean Corpuscular HGB Conc 34 g/dL (31-36); Mean Corpuscular Hemoglobin 30 pg (27-31); Mean Corpuscular Volume 89 fL (80-94); Mean Platelet Volume 8.1 fL (7.4-10.4); Nucleated Red Blood Cells % 2.3; Platelet Count 14 10^3/uL (150-450); Red Blood Count 2.87 10^6 /uL (4.18-5.48); Red Cell Distribution Width 18 % (10-15); White Blood Count 0 10^3/uL (3.5-10.8)
[2021-08-27] MEDS: Chlorhexidine MOUTHWASH 0.12% 15 ML UDC TOPICAL SCH ×5 (04:28→19:32)
[2021-08-27 05:46] LABS: Digoxin 1.4 ng/ml (0.8-2.0); Magnesium 2.2 mg/dL (1.9-2.7); Phosphorus 6.5 mg/dL (2.5-5.0); Uric Acid 3.1 mg/dL (4.4-7.6); eGFR CKD-EPI 37.3 (>60)
[2021-08-27] MEDS: Pantoprazole VIAL 40 MG VIAL IV SCH (08:02)
[2021-08-27] MEDS: Polyethylene Glycol 3350 17 GM PACKET PO SCH (08:02)
[2021-08-27] MEDS: Hydrocortisone INJ 100 MG/2ML 2 ML VIAL IV SCH ×3 (08:02→22:56)
[2021-08-27] MEDS: Docusate LIQ 100 MG/10 ML UDC PO SCH (08:03)
[2021-08-27 08:54] LABS: PCO2 Arterial 36 mmHg (35-45); PO2 Arterial 157 mmHg (80-100)
[2021-08-27] MEDS: cefTRIAXone 2 GM ADDV.VIAL 2 GM in NS 0.9% 100 ml BAG 100 ML IV SCH ×2 (10:27→21:43)
[2021-08-27] MEDS: Heparin 1,000 UNIT/ML 10 ml (10,000 UNITS) CATHLAB/DIALYSIS IV SCH (10:48)
[2021-08-27] MEDS: Acetaminophen IV 1 GM/100ML 100 ML IV PRN (11:18)
[2021-08-27] MEDS: Saline FLUSH-CENTRAL 10 ML SYRINGE CENT\\PICC SCH ×2 (14:00)
[2021-08-27] MEDS: Anidulafungin 100 MG in NS 0.9% 100 ml BAG 100 ML IVPB SCH (15:12)
[2021-08-27 16:20] LABS: Potassium 3.9 mmol/L (3.5-5.0); eGFR CKD-EPI 27.4 (>60)
[2021-08-27 16:39] LABS: Hematocrit 24 % (42-52); Hemoglobin 7.9 g/dL (14.0-18.0); Mean Corpuscular HGB Conc 34 g/dL (31-36); Mean Corpuscular Hemoglobin 30 pg (27-31); Mean Corpuscular Volume 89 fL (80-94); Platelet Count 6 10^3/uL (150-450); Red Blood Count 2.66 10^6 /uL (4.18-5.48); Red Cell Distribution Width 18 % (10-15)
[2021-08-27 17:10] LABS: Lymphocyte % 88.9 %; Mean Platelet Volume 8.4 fL (7.4-10.4); Nucleated Red Blood Cells % 5.6; White Blood Count 0 10^3/uL (3.5-10.8)
[2021-08-27] MEDS: Artificial Tear OPHTH.OINT 3.5 GM BOTH EYES PRN (21:46)
[2021-08-27 23:12] LABS: Mean Platelet Volume 7.8 fL (7.4-10.4); Platelet Count 10 10^3/uL (150-450)
[2021-08-28] MEDS: Chlorhexidine MOUTHWASH 0.12% 15 ML UDC TOPICAL SCH ×6 (00:07→21:30)
[2021-08-28] MEDS: Saline FLUSH-CENTRAL 10 ML SYRINGE CENT\\PICC SCH ×2 (00:07→14:52)
[2021-08-28] MEDS: Acetaminophen IV 1 GM/100ML 100 ML IV PRN ×2 (02:00→18:19)
[2021-08-28] MEDS: Propofol 10 mg/ml 100 ML BTL 100 ML IV SCH ×3 (02:02→14:10)
[2021-08-28 04:22] LABS: Hematocrit 24 % (42-52); Hemoglobin 8.1 g/dL (14.0-18.0); Mean Corpuscular HGB Conc 34 g/dL (31-36); Mean Corpuscular Hemoglobin 30 pg (27-31); Mean Corpuscular Volume 88 fL (80-94); Mean Platelet Volume 8.2 fL (7.4-10.4); Nucleated Red Blood Cells % 3.4; Platelet Count 8 10^3/uL (150-450); Red Blood Count 2.69 10^6 /uL (4.18-5.48); Red Cell Distribution Width 17 % (10-15); White Blood Count 0 10^3/uL (3.5-10.8)
[2021-08-28 04:56] LABS: Magnesium 2.3 mg/dL (1.9-2.7); Phosphorus 8.1 mg/dL (2.5-5.0); Uric Acid 4.4 mg/dL (4.4-7.6); eGFR CKD-EPI 23.1 (>60)
[2021-08-28 08:03] LABS: PCO2 Arterial 35 mmHg (35-45); PO2 Arterial 92 mmHg (80-100)
[2021-08-28] MEDS: Docusate LIQ 100 MG/10 ML UDC PO SCH (08:33)
[2021-08-28] MEDS: Polyethylene Glycol 3350 17 GM PACKET PO SCH (08:33)
[2021-08-28] MEDS: Pantoprazole VIAL 40 MG VIAL IV SCH (08:33)
[2021-08-28] MEDS: Hydrocortisone INJ 100 MG/2ML 2 ML VIAL IV SCH ×2 (08:34→16:13)
[2021-08-28] MEDS ORDERED: Diltiazem IV push/loading dose 5 MG/ML 5 ML vial (25 mg) IV SLOW PU ONE (08:58)
[2021-08-28 10:23] LABS: Glucose, BF 116 mg/dL
[2021-08-28 10:29] LABS: Fluid Type, Protein, Total PLEURAL; Total Protein, BF 1.6 g/dL
[2021-08-28] MEDS ORDERED: oxyCODONE 5 mg/5 ml ORAL.SOLN UDC FEED TUBE PRN (10:32)
[2021-08-28] MEDS ORDERED: Senna TAB 8.6 mg TAB FEED TUBE PRN (10:33)
[2021-08-28 10:42] LABS: Lactate Dehydrogenase, BF 442 U/L
[2021-08-28] MEDS: cefTRIAXone 2 GM ADDV.VIAL 2 GM in NS 0.9% 100 ml BAG 100 ML IV SCH (12:41)
[2021-08-28] MEDS: PHENYLEPHRINE DRIP IVPREMIX 50 MG/250 ML BAG IV SCH (13:45)
[2021-08-28] MEDS ORDERED: Heparin 1,000 UNIT/ML 10 ml (10,000 UNITS) CATHLAB/DIALYSIS DIALYSIS PRN (14:23)
[2021-08-28 15:02] LABS: Fluid Type: Pleural
[2021-08-28] MEDS ORDERED: cefTRIAXone 2 gm/50 mL D5W 2 GM/50 ML BAG IV SCH (15:30)
[2021-08-28] MEDS: Heparin 1,000 UNIT/ML 10 ml (10,000 UNITS) CATHLAB/DIALYSIS DIALYSIS ONE ×2 (15:43→16:25)
[2021-08-28] MEDS ORDERED: Digoxin IV 0.5 MG/2 ML AMP (0.25 MG/ML) IV SLOW PU ONE ×2 (16:00→18:03)
[2021-08-28] MEDS: Anidulafungin 100 MG in NS 0.9% 100 ml BAG 100 ML IVPB SCH (16:15)
[2021-08-28 16:44] LABS: Mean Platelet Volume 9.3 fL (7.4-10.4); Platelet Count 8 10^3/uL (150-450)
[2021-08-28] MEDS ORDERED: Vasopressin 100 UNITS in D5W 250 ml BAG 245 ML IV SCH (16:45)
[2021-08-28] MEDS ORDERED: Diltiazem IV BAG D5W Premix 125 MG/125 ML BAG IV SCH (19:00)
[2021-08-28] MEDS: Diltiazem (ADVAN VIAL) 100 MG/100 ML ADDV.BAG IV SCH (19:33)
[2021-08-28] MEDS: Amiodarone 400 mg TAB FEED TUBE SCH (21:31)
[2021-08-29] MEDS: fentaNYL 100 mcg/2 ml 50 MCG/ML VIAL IV SLOW PU PRN ×3 (00:02→20:28)
[2021-08-29] MEDS: Chlorhexidine MOUTHWASH 0.12% 15 ML UDC TOPICAL SCH ×6 (01:33→20:36)
[2021-08-29] MEDS: Hydrocortisone INJ 100 MG/2ML 2 ML VIAL IV SCH ×4 (01:33→20:36)
[2021-08-29] MEDS: Diltiazem (ADVAN VIAL) 100 MG/100 ML ADDV.BAG IV SCH ×5 (01:33→22:00)
[2021-08-29] MEDS: Saline FLUSH-CENTRAL 10 ML SYRINGE CENT\\PICC SCH ×2 (02:46→14:38)
[2021-08-29 05:27] LABS: Calcium 7.3 mg/dL (8.6-10.3); Magnesium 2.1 mg/dL (1.9-2.7); Phosphorus 7.6 mg/dL (2.5-5.0); Potassium 4.3 mmol/L (3.5-5.0); Uric Acid 3.6 mg/dL (4.4-7.6); eGFR CKD-EPI 28.2 (>60)
[2021-08-29 06:40] LABS: Hematocrit 22 % (42-52); Hemoglobin 7.4 g/dL (14.0-18.0); Mean Corpuscular HGB Conc 34 g/dL (31-36); Mean Corpuscular Hemoglobin 30 pg (27-31); Mean Corpuscular Volume 88 fL (80-94); Mean Platelet Volume 7.5 fL (7.4-10.4); Nucleated Red Blood Cells % 2.5; Red Blood Count 2.46 10^6 /uL (4.18-5.48); Red Cell Distribution Width 17 % (10-15)
[2021-08-29 06:43] LABS: White Blood Count 0 10^3/uL (3.5-10.8)
[2021-08-29 06:44] LABS: Platelet Count 14 10^3/uL (150-450)
[2021-08-29] MEDS ORDERED: Piperacillin/Tazobac ADVAN 3.375 GM in NS 0.9% 100 ml BAG 100 ML IV ONE (08:36)
[2021-08-29] MEDS: Propofol 10 mg/ml 100 ML BTL 100 ML IV SCH ×2 (08:45→17:32)
[2021-08-29] MEDS ORDERED: Zosyn per Pharmacy NOTE FOLLOW UP SCH (09:00)
[2021-08-29] MEDS: Amiodarone 400 mg TAB FEED TUBE SCH ×2 (10:11→20:35)
[2021-08-29] MEDS: Pantoprazole VIAL 40 MG VIAL IV SCH (10:11)
[2021-08-29] MEDS: Polyethylene Glycol 3350 17 GM PACKET FEED TUBE SCH (10:12)
[2021-08-29] MEDS: Docusate LIQ 100 MG/10 ML UDC G TUBE SCH (10:12)
[2021-08-29] MEDS ORDERED: Norepinephrine 16MCG/ML BAGD5W 0 MCG/0 ML BAG IV ONE (10:24)
[2021-08-29 10:35] LABS: Digoxin 1.3 ng/ml (0.8-2.0)
[2021-08-29] MEDS ORDERED: NS 0.9% IV SCH (11:00)
[2021-08-29] MEDS ORDERED: CEFTRIAXONE IV SCH (11:00)
[2021-08-29] MEDS ORDERED: Vasopressin 100 UNITS in D5W 250 ml BAG 245 ML IV SCH (11:45)
[2021-08-29] MEDS: PHENYLEPHRINE DRIP IVPREMIX 50 MG/250 ML BAG IV SCH (12:50)
[2021-08-29 14:57] LABS: Triglycerides (BF) 474 mg/dL
[2021-08-29] MEDS: Anidulafungin 100 MG in NS 0.9% 100 ml BAG 100 ML IVPB SCH (17:27)
[2021-08-29] MEDS: ZOSYN 3.375 GM Q12H per EXTENDED INFUSION IV SCH (20:38)
[2021-08-29] MEDS: Artificial Tear OPHTH.OINT 3.5 GM BOTH EYES PRN (21:01)
[2021-08-29] MEDS: Acetaminophen IV 1 GM/100ML 100 ML IV PRN (22:36)
[2021-08-30] MEDS: Saline FLUSH-CENTRAL 10 ML SYRINGE CENT\\PICC SCH ×2 (02:04→14:13)
[2021-08-30] MEDS: Chlorhexidine MOUTHWASH 0.12% 15 ML UDC TOPICAL SCH ×6 (02:04→21:34)
[2021-08-30] MEDS: fentaNYL 100 mcg/2 ml 50 MCG/ML VIAL IV SLOW PU PRN ×5 (03:07→21:34)
[2021-08-30 05:21] LABS: ALT 102 U/L (7-52); AST 54 U/L (13-39); Albumin < 1.7 g/dL (3.2-5.2); Albumin/Globulin Ratio 1.1 (1-3); Alkaline Phosphatase 107 U/L (35-149); Anion Gap 12 mmol/L (2-11); Blood Urea Nitrogen 66 mg/dL (6-24); CO2 Carbon Dioxide 22 mmol/L (22-32); Calcium 6.8 mg/dL (8.6-10.3); Chloride 101 mmol/L (101-111); Globulin 1.5 g/dL (2-4); Glucose 107 mg/dL (70-100); Magnesium 1.9 mg/dL (1.9-2.7); Phosphorus 5.9 mg/dL (2.5-5.0); Potassium 3.6 mmol/L (3.5-5.0); Sodium 135 mmol/L (135-145); Total Protein 3.2 g/dL (6.4-8.9); eGFR CKD-EPI 33.1 (>60)
[2021-08-30 05:52] LABS: Hematocrit 19 % (42-52); Hemoglobin 6.6 g/dL (14.0-18.0); Lymphocyte % 85.7 %; Mean Corpuscular HGB Conc 35 g/dL (31-36); Mean Corpuscular Hemoglobin 30 pg (27-31); Mean Corpuscular Volume 87 fL (80-94); Nucleated Red Blood Cells % 5.9; Platelet Count 3 10^3/uL (150-450); Red Blood Count 2.21 10^6 /uL (4.18-5.48); Red Cell Distribution Width 17 % (10-15); White Blood Count 0.1 10^3/uL (3.5-10.8)
[2021-08-30] MEDS: Propofol 10 mg/ml 100 ML BTL 100 ML IV SCH ×2 (06:03→18:12)
[2021-08-30] MEDS: Docusate LIQ 100 MG/10 ML UDC G TUBE SCH (07:50)
[2021-08-30] MEDS: Amiodarone 400 mg TAB FEED TUBE SCH ×2 (07:50→21:34)
[2021-08-30] MEDS: Polyethylene Glycol 3350 17 GM PACKET FEED TUBE SCH (07:50)
[2021-08-30] MEDS: Pantoprazole VIAL 40 MG VIAL IV SCH (07:50)
[2021-08-30] MEDS: Hydrocortisone INJ 100 MG/2ML 2 ML VIAL IV SCH ×2 (07:51→21:34)
[2021-08-30 08:46] LABS: Uric Acid 3.8 mg/dL (4.4-7.6)
[2021-08-30] MEDS: ZOSYN 3.375 GM Q12H per EXTENDED INFUSION IV SCH (10:10)
[2021-08-30] MEDS: Heparin 1,000 UNIT/ML 10 ml (10,000 UNITS) CATHLAB/DIALYSIS DIALYSIS ONE ×2 (12:32→14:01)
[2021-08-30] MEDS: Anidulafungin 100 MG in NS 0.9% 100 ml BAG 100 ML IVPB SCH (15:09)
[2021-08-30 15:11] LABS: Hematocrit 20 % (42-52); Hemoglobin 7.2 g/dL (14.0-18.0); Mean Corpuscular HGB Conc 35 g/dL (31-36); Mean Corpuscular Hemoglobin 30 pg (27-31); Mean Corpuscular Volume 85 fL (80-94); Mean Platelet Volume 7.5 fL (7.4-10.4); Platelet Count 14 10^3/uL (150-450); Red Blood Count 2.41 10^6 /uL (4.18-5.48); Red Cell Distribution Width 16 % (10-15); White Blood Count 0.1 10^3/uL (3.5-10.8)
[2021-08-30 16:00] LABS: Eosinophil % 11.5 %; Lymphocyte % 73.1 %; Nucleated Red Blood Cells % 59.3
[2021-08-30] MEDS: Digoxin LIQ ORALSYR 0.05 MG/ML 1 ML PO SCH (17:37)
[2021-08-30] MEDS: Acetaminophen IV 1 GM/100ML 100 ML IV PRN (18:11)
[2021-08-30] MEDS: PHENYLEPHRINE DRIP IVPREMIX 50 MG/250 ML BAG IV SCH ×2 (18:12→23:30)
[2021-08-31] MEDS: ZOSYN 3.375 GM Q12H per EXTENDED INFUSION IV SCH ×2 (00:45→11:02)
[2021-08-31] MEDS: Chlorhexidine MOUTHWASH 0.12% 15 ML UDC TOPICAL SCH ×5 (00:46→16:04)
[2021-08-31] MEDS: Saline FLUSH-CENTRAL 10 ML SYRINGE CENT\\PICC SCH ×2 (02:14→14:00)
[2021-08-31] MEDS: fentaNYL 100 mcg/2 ml 50 MCG/ML VIAL IV SLOW PU PRN ×4 (05:03→15:31)
[2021-08-31 05:09] LABS: Hematocrit 17 % (42-52); Mean Corpuscular HGB Conc 35 g/dL (31-36); Mean Corpuscular Hemoglobin 30 pg (27-31); Mean Corpuscular Volume 86 fL (80-94); Mean Platelet Volume 8.1 fL (7.4-10.4); Platelet Count 7 10^3/uL (150-450); Red Cell Distribution Width 17 % (10-15); White Blood Count 0 10^3/uL (3.5-10.8)
[2021-08-31 05:34] LABS: ALT 143 U/L (7-52); AST 118 U/L (13-39); Albumin < 1.7 g/dL (3.2-5.2); Albumin/Globulin Ratio 1.3 (1-3); Alkaline Phosphatase 151 U/L (35-149); Anion Gap 11 mmol/L (2-11); Blood Urea Nitrogen 52 mg/dL (6-24); CO2 Carbon Dioxide 23 mmol/L (22-32); Calcium 6.7 mg/dL (8.6-10.3); Chloride 101 mmol/L (101-111); Globulin 1.3 g/dL (2-4); Glucose 99 mg/dL (70-100); Magnesium 1.8 mg/dL (1.9-2.7); Phosphorus 4.8 mg/dL (2.5-5.0); Potassium 3.3 mmol/L (3.5-5.0); Sodium 135 mmol/L (135-145); Uric Acid 3.5 mg/dL (4.4-7.6); eGFR CKD-EPI 36.4 (>60)
[2021-08-31 07:05] LABS: Eosinophil % 2.6 %
[2021-08-31] MEDS: Acetaminophen IV 1 GM/100ML 100 ML IV PRN (07:20)
[2021-08-31] MEDS ORDERED: KCL 20 MEQ/100 ML IVPREMIX 20 MEQ/100 ML BAG IV ONE (07:50)
[2021-08-31] MEDS: Pantoprazole VIAL 40 MG VIAL IV SCH (08:31)
[2021-08-31] MEDS: Amiodarone 400 mg TAB FEED TUBE SCH (08:31)
[2021-08-31] MEDS: Hydrocortisone INJ 100 MG/2ML 2 ML VIAL IV SCH (08:31)
[2021-08-31] MEDS: Polyethylene Glycol 3350 17 GM PACKET FEED TUBE SCH (08:31)
[2021-08-31] MEDS: Docusate LIQ 100 MG/10 ML UDC G TUBE SCH (08:32)
[2021-08-31] MEDS: PHENYLEPHRINE DRIP IVPREMIX 50 MG/250 ML BAG IV SCH (09:09)
[2021-08-31] MEDS ORDERED: Magnesium Sulfate 2 gm BAG 2 GM/50 ML BAG IVPB ONE (11:33)
[2021-08-31] MEDS: Propofol 10 mg/ml 100 ML BTL 100 ML IV SCH (11:52)
[2021-08-31] MEDS ORDERED: Heparin 1,000 UNIT/ML 10 ml (10,000 UNITS) CATHLAB/DIALYSIS DIALYSIS ONE (12:00)
[2021-08-31] MEDS: LORazepam 2 mg VIAL 1 ml IV PUSH PRN ×2 (13:46→15:30)
[2021-08-31] MEDS ORDERED: Atropine 1 MG/ML INJ 1 ML VIAL IV PUSH PRN (14:29)
[2021-08-31] MEDS: Atropine 1% (ORAL/SL) 15 ML BTL SL PRN ×3 (14:43→19:35)
[2021-08-31 14:50] VITALS: BP 117/50
[2021-08-31] MEDS: Glycopyrrolate IV 0.2 MG/ML 1 ML VIAL IV SLOW PU SCH ×2 (15:23→21:37)
[2021-08-31] MEDS: Digoxin LIQ ORALSYR 0.05 MG/ML 1 ML PO SCH (16:04)
[2021-08-31] MEDS ORDERED: Lorazepam PYXIS KEY PRN (16:59)
[2021-08-31] MEDS ORDERED: LORazepam 2 mg VIAL 1 ml IV PUSH ONE (17:00)
[2021-08-31] MEDS ORDERED: Morphine 10 MG/ML VIAL (1 ml) IV PRN (17:52)
[2021-08-31] MEDS ORDERED: Scopolamine 1 mg/72hr PATCH TRANSDERM SCH (20:00)
[2021-09-01] MEDS: Saline FLUSH-CENTRAL 10 ML SYRINGE CENT\\PICC SCH (02:12)
[2021-09-01] MEDS: Glycopyrrolate IV 0.2 MG/ML 1 ML VIAL IV SLOW PU SCH (04:58)
[2021-09-01] MEDS ORDERED: Succinylcholine 200 mg VIAL 20 mg/ml 10 ml VIAL (200 mg) ONE (17:36)
[2021-09-01] MEDS ORDERED: Etomidate 40 mg/20 ml (2 MG/ML) 20 ml VIAL (40 mg) ONE (17:36)
[2021-09-04 10:23] LABS: Case Number CR-22-17017
== END 2021-09-01 06:30 | disposition expired | DRG 681 ==
LOC: CHOA 08:37 → MED 16:43 → ICU 08-20 17:30
PROVIDERS: ADMIT Internal Medicine Hematology & Oncology; ATTEND Internal Medicine